=== PATIENT | male | born 1960 | race Caucasian/White ===

== ENCOUNTER 2017-03-09 12:49 | Emergency (ER) | payer OTHER ==
[~2017-03-09] VITALS: Ht 180.3 cm; Wt 99.8 kg
[~2017-03-09 12:49] MED LIST: ASPI81CH PO; B-1100 MG PO; CYCL10 PO; Cyanocobalamin5 GM PO; FOLI1 PO; HORIZANT600 MG PO; INSULANPEN SC; LISI5 PO; METF500 PO; NAPR500 PO; OXYC10ER PO; PANT20 PO; RANI150 PO
== END 2017-03-09 14:00 | disposition home or self-care (01) ==
LOC: ER 12:49
DX: M79.671 Pain in right foot (principal); E11.9 Type 2 diabetes mellitus without complications; I10 Essential (primary) hypertension; Z79.899 Other long term (current) drug therapy; Z79.84 Long term (current) use of oral hypoglycemic drugs; Z87.442 Personal history of urinary calculi; Z90.49 Acquired absence of other specified parts of digestive tract; Z87.891 Personal history of nicotine dependence; W01.0XXA Fall on same level from slipping, tripping and stumbling without subsequent striking against object, initial encounter
CPT/HCPCS: 73630; 99283

== ENCOUNTER 2017-04-14 17:28 | Emergency (ER) | payer OTHER ==
[~2017-04-14] VITALS: Ht 180.3 cm; Wt 99.8 kg
[2017-04-14] MEDS ORDERED: BASAGLAR K100 UNIT/1 SQ (17:57)
[2017-04-14] MEDS ORDERED: Cyclobenzaprine5 MG PO (19:18)
[2017-04-14] MEDS ORDERED: Prednisone20 MG PO (19:46)
== END 2017-04-14 19:57 | disposition home or self-care (01) ==
LOC: ER 17:28
DX: M25.552 Pain in left hip (principal); Z79.899 Other long term (current) drug therapy; Z79.84 Long term (current) use of oral hypoglycemic drugs; Z79.891 Long term (current) use of opiate analgesic; E11.9 Type 2 diabetes mellitus without complications; I10 Essential (primary) hypertension; F17.200 Nicotine dependence, unspecified, uncomplicated
CPT/HCPCS: 72170; 81000; 99283

== ENCOUNTER 2017-04-19 16:39 | Emergency (ER) | payer OTHER ==
[~2017-04-19] VITALS: Ht 180.3 cm; Wt 10.0 kg
[~2017-04-19 16:39] MED LIST changes: +BASAGLAR K100 UNIT/1 SQ; +Cyclobenzaprine5 MG PO; +Prednisone20 MG PO
== END 2017-04-19 19:18 | disposition home or self-care (01) ==
LOC: ER 16:39
DX: M54.42 Lumbago with sciatica, left side (principal); E11.9 Type 2 diabetes mellitus without complications; I10 Essential (primary) hypertension; Z79.899 Other long term (current) drug therapy; Z79.84 Long term (current) use of oral hypoglycemic drugs; Z79.52 Long term (current) use of systemic steroids; Z87.442 Personal history of urinary calculi
CPT/HCPCS: 96374; 96375; 96376; 99284; J1100; J1170; J2405

== ENCOUNTER 2017-04-22 18:27 | Inpatient (IN) | payer OTHER ==
[~2017-04-22] VITALS: Ht 180.3 cm; Wt 99.0 kg
[2017-04-22] MEDS ORDERED: METPRE4DP PO (19:56)
[2017-04-25 05:33] LABS: BASOPHILS ABSOLUTE AUTO 0.02 K/mm3 (0.00-0.23); BASOPHILS PERCENT AUTO 0 % (0-2); EOSINOPHILS ABSOLUTE AUTO 0.05 K/mm3 (0.00-0.68); EOSINOPHILS PERCENT AUTO 0 % (0-6); Hematocrit 42.1 % (37.0-53.0); Hemoglobin 14.8 g/dL (13.5-17.5); IMMATURE GRAN ABSOLUTE AUTO 0.05 K/mm3 (0.00-0.10); IMMATURE GRAN PERCENT AUTO 0 % (0-1); LYMPHOCYTES ABSOLUTE AUTO 2.73 K/mm3 (0.84-5.20); LYMPHOCYTES PERCENT AUTO 23 % (21-46); MONOCYTES ABSOLUTE AUTO 0.77 K/mm3 (0.16-1.47); MONOCYTES PERCENT AUTO 7 % (4-13); Mean Corpuscular HGB 30.6 pg (26.0-34.0); Mean Corpuscular HGB Conc 35.2 g/dL (31.5-36.5); Mean Corpuscular Volume 87 fL (80-100); Mean Platelet Volume 11.4 fL (9.1-12.4); NEUTROPHILS ABSOLUTE AUTO 8.08 K/mm3 (1.96-9.15); NEUTROPHILS PERCENT AUTO 69 % (41-73); Platelet Count 161 K/mm3 (150-400); RDW Coefficient Variation 12.4 % (11.7-14.2); RDW Standard Deviation 39.3 fL (35.1-46.3); Red Blood Cell Count 4.83 M/mm3 (4.30-5.90)
[2017-04-25 06:01] LABS: Alanine Aminotransfer (ALT/SGP 29 U/L (12-78); Albumin, Blood 3.5 g/dL (3.4-5.0); Albumin/Globulin Ratio 0.9 (0.8-1.8); Alk Phos 45 U/L (50-136); Anion Gap 8 mmol/L (6-16); Aspartate Aminotrans (AST/SGOT 7 U/L (12-37); Bilirubin, Total 0.6 mg/dL (0.1-1.0); Blood Urea Nitrogen 29 mg/dL (8-24); CO2, Blood 26 mmol/L (21-32); Calcium, Blood 9.1 mg/dL (8.5-10.1); Chloride, Blood 101 mmol/L (98-108); Creatinine, Blood 0.88 mg/dL (0.60-1.20); Globulin, Blood 3.9 g/dL (2.2-4.0); Glomerular Filtration Rate >60 (60-); Glucose, Blood 217 mg/dL (70-99); Sodium, Blood 135 mmol/L (136-145); Total Protein, Blood 7.4 g/dL (6.4-8.2)
[2017-04-28 05:38] LABS: Anion Gap 8 mmol/L (6-16); Blood Urea Nitrogen 34 mg/dL (8-24); Bun/Creatinine Ratio 41.1 (12.0-20.0); CO2, Blood 26 mmol/L (21-32); Calcium, Blood 8.8 mg/dL (8.5-10.1); Chloride, Blood 99 mmol/L (98-108); Creatinine, Blood 0.83 mg/dL (0.60-1.20); Glomerular Filtration Rate >60 (60-); Glucose, Blood 218 mg/dL (70-99); Potassium, Blood 4.1 mmol/L (3.5-5.5); Sodium, Blood 133 mmol/L (136-145)
[2017-04-30 05:28] LABS: BASOPHILS ABSOLUTE AUTO 0.02 K/mm3 (0.00-0.23); BASOPHILS PERCENT AUTO 0 % (0-2); EOSINOPHILS PERCENT AUTO 1 % (0-6); Hematocrit 44.1 % (37.0-53.0); Hemoglobin 15.9 g/dL (13.5-17.5); IMMATURE GRAN ABSOLUTE AUTO 0.07 K/mm3 (0.00-0.10); IMMATURE GRAN PERCENT AUTO 1 % (0-1); LYMPHOCYTES ABSOLUTE AUTO 3.76 K/mm3 (0.84-5.20); LYMPHOCYTES PERCENT AUTO 25 % (21-46); MONOCYTES ABSOLUTE AUTO 0.93 K/mm3 (0.16-1.47); MONOCYTES PERCENT AUTO 6 % (4-13); Mean Corpuscular HGB 30.7 pg (26.0-34.0); Mean Corpuscular HGB Conc 36.1 g/dL (31.5-36.5); Mean Corpuscular Volume 85 fL (80-100); Mean Platelet Volume 10.5 fL (9.1-12.4); NEUTROPHILS PERCENT AUTO 67 % (41-73); Platelet Count 187 K/mm3 (150-400); RDW Coefficient Variation 12.2 % (11.7-14.2); RDW Standard Deviation 37.7 fL (35.1-46.3); Red Blood Cell Count 5.18 M/mm3 (4.30-5.90); White Blood Cell Count 14.98 K/mm3 (4.00-11.30)
[2017-04-30 06:15] LABS: Anion Gap 10 mmol/L (6-16); Blood Urea Nitrogen 33 mg/dL (8-24); Bun/Creatinine Ratio 39.4 (12.0-20.0); CO2, Blood 26 mmol/L (21-32); Calcium, Blood 9.1 mg/dL (8.5-10.1); Chloride, Blood 99 mmol/L (98-108); Creatinine, Blood 0.84 mg/dL (0.60-1.20); Glomerular Filtration Rate >60 (60-); Glucose, Blood 116 mg/dL (70-99); Potassium, Blood 4.3 mmol/L (3.5-5.5); Sodium, Blood 135 mmol/L (136-145)
== END 2017-05-02 15:11 | disposition home or self-care (01) | DRG 519 ==
LOC: ER 18:27 → MEDS 18:28
PROVIDERS: Family Medicine; Hospitalist; Internal Medicine; Orthopaedic Surgery
PROC: 0SB20ZZ Excision of Lumbar Vertebral Disc, Open Approach (ICD-10-PCS; principal; 2017-04-30 13:30)
DX: M48.061 Spinal stenosis, lumbar region without neurogenic claudication (principal); K56.7 Ileus, unspecified; E87.1 Hypo-osmolality and hyponatremia; M51.16 Intervertebral disc disorders with radiculopathy, lumbar region; T50.905A Adverse effect of unspecified drugs, medicaments and biological substances, initial encounter; I10 Essential (primary) hypertension
CPT/HCPCS: 36415; 72131; 72148; 73552; 78300; 80048; 80053; 82947; 85025; 88304; 93005; 93010; 96372; 96374; 96375; 96376; 97110; 97116; 97162; 97164; 97530; 99285; A9561; G0378; G8978; G8979; J0171; J0690; J1100; J1170; J1650; J1815; J1885; J2250; J2405; J3010; J3370; J7030; J7120

== ENCOUNTER 2017-05-05 17:47 | Inpatient (IN) | payer OTHER ==
[~2017-05-05] VITALS: Ht 180.3 cm; Wt 98.9 kg
[~2017-05-05 17:47] MED LIST changes: +METPRE4DP PO
[2017-05-05] MEDS ORDERED: OXYC10TA19 PO (18:22)
[2017-05-05 18:49] LABS: BASOPHILS ABSOLUTE AUTO 0.05 K/mm3 (0.00-0.23); BASOPHILS PERCENT AUTO 0 % (0-2); EOSINOPHILS ABSOLUTE AUTO 0.36 K/mm3 (0.00-0.68); EOSINOPHILS PERCENT AUTO 2 % (0-6); Hematocrit 39.2 % (37.0-53.0); Hemoglobin 13.8 g/dL (13.5-17.5); IMMATURE GRAN ABSOLUTE AUTO 0.06 K/mm3 (0.00-0.10); IMMATURE GRAN PERCENT AUTO 0 % (0-1); LYMPHOCYTES ABSOLUTE AUTO 1.81 K/mm3 (0.84-5.20); LYMPHOCYTES PERCENT AUTO 10 % (21-46); MONOCYTES ABSOLUTE AUTO 1.59 K/mm3 (0.16-1.47); MONOCYTES PERCENT AUTO 9 % (4-13); Mean Corpuscular HGB 31.2 pg (26.0-34.0); Mean Corpuscular HGB Conc 35.2 g/dL (31.5-36.5); NEUTROPHILS ABSOLUTE AUTO 14.42 K/mm3 (1.96-9.15); NEUTROPHILS PERCENT AUTO 79 % (41-73); Platelet Count 225 K/mm3 (150-400); RDW Coefficient Variation 12.5 % (11.7-14.2); RDW Standard Deviation 40.4 fL (35.1-46.3); Red Blood Cell Count 4.43 M/mm3 (4.30-5.90); White Blood Cell Count 18.29 K/mm3 (4.00-11.30)
[2017-05-05 18:52] LABS: Mean Corpuscular Volume 89 fL (80-100)
[2017-05-05 19:06] LABS: Albumin, Blood 3.3 g/dL (3.4-5.0); Bilirubin, Total 1.7 mg/dL (0.1-1.0); Bun/Creatinine Ratio 13.7 (12.0-20.0); Calcium, Blood 8.9 mg/dL (8.5-10.1); Creatinine, Blood 3.79 mg/dL (0.60-1.20); Globulin, Blood 3.4 g/dL (2.2-4.0); Potassium, Blood 4.1 mmol/L (3.5-5.5); Total Protein, Blood 6.7 g/dL (6.4-8.2)
[2017-05-05 19:11] LABS: Ethanol (Alcohol), Blood, Med <3 mg/dL; Troponin I <0.015 ng/mL (0.000-0.040)
[2017-05-06 05:10] LABS: BASOPHILS ABSOLUTE AUTO 0.02 K/mm3 (0.00-0.23); BASOPHILS PERCENT AUTO 0 % (0-2); EOSINOPHILS ABSOLUTE AUTO 0.18 K/mm3 (0.00-0.68); EOSINOPHILS PERCENT AUTO 2 % (0-6); Hematocrit 28.9 % (37.0-53.0); IMMATURE GRAN ABSOLUTE AUTO 0.05 K/mm3 (0.00-0.10); IMMATURE GRAN PERCENT AUTO 1 % (0-1); LYMPHOCYTES ABSOLUTE AUTO 1.12 K/mm3 (0.84-5.20); LYMPHOCYTES PERCENT AUTO 11 % (21-46); MONOCYTES ABSOLUTE AUTO 0.94 K/mm3 (0.16-1.47); MONOCYTES PERCENT AUTO 10 % (4-13); Mean Corpuscular HGB 31.2 pg (26.0-34.0); Mean Corpuscular HGB Conc 34.6 g/dL (31.5-36.5); Mean Corpuscular Volume 90 fL (80-100); Mean Platelet Volume 10.6 fL (9.1-12.4); NEUTROPHILS ABSOLUTE AUTO 7.57 K/mm3 (1.96-9.15); NEUTROPHILS PERCENT AUTO 77 % (41-73); Platelet Count 116 K/mm3 (150-400); RDW Coefficient Variation 12.5 % (11.7-14.2); RDW Standard Deviation 41.1 fL (35.1-46.3); Red Blood Cell Count 3.21 M/mm3 (4.30-5.90); White Blood Cell Count 9.88 K/mm3 (4.00-11.30)
[2017-05-06 05:40] LABS: Calcium, Blood 7.2 mg/dL (8.5-10.1); Creatinine, Blood 2.74 mg/dL (0.60-1.20); Potassium, Blood 4.4 mmol/L (3.5-5.5)
[2017-05-06 06:14] LABS: Source, Urine Catheter
[2017-05-06 06:32] LABS: Bilirubin, Urine Neg (Neg); Blood, Urine 1+ (Neg); Glucose Qualitative, Urine Neg (Neg); Ketones, Urine Neg (Neg); Leukocyte Esterase, Urine 1+ (Neg); Nitrite, Urine Neg (Neg); Protein, Urine 1+ (Neg); Specific Gravity, Urine 1.015 (1.003-1.022); Urobilinogen, Urine 1+ (Normal)
[2017-05-06 06:59] LABS: Appearance, Urine Clear (Clear); Color, Urine Yellow (P-Yellow)
[2017-05-06 07:03] LABS: Amorphous Light (0-Heavy); Bacteria Rare /hpf; Red Blood Cells, Urine 0-2 /hpf (0-2); Squamous Epithelial Cells Not Seen /hpf (Few)
[2017-05-06 07:05] LABS: Hyaline Casts Rare /lpf (0-2); Mucus Light (0-Heavy)
[2017-05-06 15:58] LABS: U Amphetamine Screen Not Detected; U Barbituate Screen Not Detected; U Benzodiazapine Screen DETECTED; U Buprenorphine Screen Not Detected; U Cannabinoids Screen DETECTED; U Cocaine Screen Not Detected; U Methadone Screen Not Detected; U Methamphetamine Screen Not Detected; U Opiates Screen Not Detected; U Oxycodone Screen DETECTED; U Phencyclidine Screen Not Detected
[2017-05-06 15:59] LABS: U Propoxyphene Screen Not Detected
[2017-05-07 05:14] LABS: BASOPHILS ABSOLUTE AUTO 0.01 K/mm3 (0.00-0.23); BASOPHILS PERCENT AUTO 0 % (0-2); EOSINOPHILS ABSOLUTE AUTO 0.26 K/mm3 (0.00-0.68); EOSINOPHILS PERCENT AUTO 5 % (0-6); Hematocrit 25.7 % (37.0-53.0); Hemoglobin 8.9 g/dL (13.5-17.5); IMMATURE GRAN ABSOLUTE AUTO 0.03 K/mm3 (0.00-0.10); IMMATURE GRAN PERCENT AUTO 1 % (0-1); LYMPHOCYTES ABSOLUTE AUTO 0.98 K/mm3 (0.84-5.20); LYMPHOCYTES PERCENT AUTO 18 % (21-46); MONOCYTES ABSOLUTE AUTO 0.55 K/mm3 (0.16-1.47); MONOCYTES PERCENT AUTO 10 % (4-13); Mean Corpuscular HGB Conc 34.6 g/dL (31.5-36.5); Mean Corpuscular Volume 90 fL (80-100); Mean Platelet Volume 10.7 fL (9.1-12.4); NEUTROPHILS PERCENT AUTO 66 % (41-73); Platelet Count 84 K/mm3 (150-400); RDW Coefficient Variation 12.3 % (11.7-14.2); RDW Standard Deviation 39.7 fL (35.1-46.3); Red Blood Cell Count 2.87 M/mm3 (4.30-5.90); White Blood Cell Count 5.33 K/mm3 (4.00-11.30)
[2017-05-07 05:45] LABS: Anion Gap 7 mmol/L (6-16); Blood Urea Nitrogen 22 mg/dL (8-24); Bun/Creatinine Ratio 20.4 (12.0-20.0); CO2, Blood 24 mmol/L (21-32); Calcium, Blood 7.4 mg/dL (8.5-10.1); Chloride, Blood 109 mmol/L (98-108); Creatinine, Blood 1.08 mg/dL (0.60-1.20); Glomerular Filtration Rate >60 (60-); Glucose, Blood 209 mg/dL (70-99); Potassium, Blood 4.2 mmol/L (3.5-5.5); Sodium, Blood 140 mmol/L (136-145)
[2017-05-08 05:13] LABS: Albumin, Blood 2.3 g/dL (3.4-5.0); Anion Gap 8 mmol/L (6-16); Blood Urea Nitrogen 9 mg/dL (8-24); Bun/Creatinine Ratio 10.5 (12.0-20.0); CO2, Blood 26 mmol/L (21-32); Calcium, Blood 7.9 mg/dL (8.5-10.1); Chloride, Blood 107 mmol/L (98-108); Creatinine, Blood 0.86 mg/dL (0.60-1.20); Glomerular Filtration Rate >60 (60-); Glucose, Blood 110 mg/dL (70-99); Phosphorus, Blood 2.3 mg/dL (2.5-4.9); Potassium, Blood 3.8 mmol/L (3.5-5.5); Sodium, Blood 141 mmol/L (136-145)
[2017-05-09 05:22] LABS: BASOPHILS PERCENT AUTO 0 % (0-2); EOSINOPHILS ABSOLUTE AUTO 0.29 K/mm3 (0.00-0.68); EOSINOPHILS PERCENT AUTO 7 % (0-6); Hematocrit 27.2 % (37.0-53.0); Hemoglobin 9.7 g/dL (13.5-17.5); IMMATURE GRAN ABSOLUTE AUTO 0.02 K/mm3 (0.00-0.10); IMMATURE GRAN PERCENT AUTO 1 % (0-1); LYMPHOCYTES ABSOLUTE AUTO 1.09 K/mm3 (0.84-5.20); LYMPHOCYTES PERCENT AUTO 27 % (21-46); MONOCYTES ABSOLUTE AUTO 0.37 K/mm3 (0.16-1.47); MONOCYTES PERCENT AUTO 9 % (4-13); Mean Corpuscular HGB Conc 35.7 g/dL (31.5-36.5); Mean Platelet Volume 10.3 fL (9.1-12.4); NEUTROPHILS ABSOLUTE AUTO 2.35 K/mm3 (1.96-9.15); NEUTROPHILS PERCENT AUTO 57 % (41-73); Platelet Count 118 K/mm3 (150-400); RDW Coefficient Variation 12.3 % (11.7-14.2); RDW Standard Deviation 38.4 fL (35.1-46.3); Red Blood Cell Count 3.13 M/mm3 (4.30-5.90); White Blood Cell Count 4.12 K/mm3 (4.00-11.30)
[2017-05-09 05:23] LABS: Mean Corpuscular Volume 87 fL (80-100)
[2017-05-09 05:41] LABS: Albumin, Blood 2.2 g/dL (3.4-5.0); Anion Gap 9 mmol/L (6-16); Blood Urea Nitrogen 9 mg/dL (8-24); Bun/Creatinine Ratio 10.3 (12.0-20.0); CO2, Blood 25 mmol/L (21-32); Chloride, Blood 107 mmol/L (98-108); Creatinine, Blood 0.87 mg/dL (0.60-1.20); Glomerular Filtration Rate >60 (60-); Glucose, Blood 173 mg/dL (70-99); Phosphorus, Blood 3.1 mg/dL (2.5-4.9); Potassium, Blood 3.6 mmol/L (3.5-5.5); Sodium, Blood 141 mmol/L (136-145)
[2017-05-09 10:15] LABS: Vancomycin, Trough 16.4 ug/mL (5.0-10.0)
[2017-05-10 05:03] LABS: BASOPHILS ABSOLUTE AUTO 0.01 K/mm3 (0.00-0.23); BASOPHILS PERCENT AUTO 0 % (0-2); EOSINOPHILS ABSOLUTE AUTO 0.36 K/mm3 (0.00-0.68); EOSINOPHILS PERCENT AUTO 8 % (0-6); Hematocrit 28.5 % (37.0-53.0); Hemoglobin 10.1 g/dL (13.5-17.5); IMMATURE GRAN ABSOLUTE AUTO 0.02 K/mm3 (0.00-0.10); IMMATURE GRAN PERCENT AUTO 1 % (0-1); LYMPHOCYTES ABSOLUTE AUTO 1.26 K/mm3 (0.84-5.20); LYMPHOCYTES PERCENT AUTO 29 % (21-46); MONOCYTES PERCENT AUTO 9 % (4-13); Mean Corpuscular HGB 30.7 pg (26.0-34.0); Mean Corpuscular HGB Conc 35.4 g/dL (31.5-36.5); Mean Corpuscular Volume 87 fL (80-100); Mean Platelet Volume 9.4 fL (9.1-12.4); NEUTROPHILS ABSOLUTE AUTO 2.26 K/mm3 (1.96-9.15); NEUTROPHILS PERCENT AUTO 52 % (41-73); Platelet Count 127 K/mm3 (150-400); RDW Coefficient Variation 12.1 % (11.7-14.2); RDW Standard Deviation 38.2 fL (35.1-46.3); Red Blood Cell Count 3.29 M/mm3 (4.30-5.90); White Blood Cell Count 4.31 K/mm3 (4.00-11.30)
[2017-05-10 05:20] LABS: Albumin, Blood 2.4 g/dL (3.4-5.0); Anion Gap 8 mmol/L (6-16); Blood Urea Nitrogen 7 mg/dL (8-24); Bun/Creatinine Ratio 8.2 (12.0-20.0); CO2, Blood 25 mmol/L (21-32); Calcium, Blood 8.1 mg/dL (8.5-10.1); Chloride, Blood 107 mmol/L (98-108); Creatinine, Blood 0.85 mg/dL (0.60-1.20); Glomerular Filtration Rate >60 (60-); Glucose, Blood 195 mg/dL (70-99); Phosphorus, Blood 3.9 mg/dL (2.5-4.9); Potassium, Blood 3.5 mmol/L (3.5-5.5); Sodium, Blood 140 mmol/L (136-145)
[2017-05-11 05:02] LABS: BASOPHILS ABSOLUTE AUTO 0.03 K/mm3 (0.00-0.23); BASOPHILS PERCENT AUTO 0 % (0-2); EOSINOPHILS ABSOLUTE AUTO 0.36 K/mm3 (0.00-0.68); EOSINOPHILS PERCENT AUTO 5 % (0-6); Hematocrit 32.6 % (37.0-53.0); Hemoglobin 11.4 g/dL (13.5-17.5); IMMATURE GRAN ABSOLUTE AUTO 0.05 K/mm3 (0.00-0.10); IMMATURE GRAN PERCENT AUTO 1 % (0-1); LYMPHOCYTES ABSOLUTE AUTO 1.32 K/mm3 (0.84-5.20); LYMPHOCYTES PERCENT AUTO 18 % (21-46); MONOCYTES ABSOLUTE AUTO 0.62 K/mm3 (0.16-1.47); MONOCYTES PERCENT AUTO 8 % (4-13); Mean Corpuscular HGB 30.7 pg (26.0-34.0); Mean Corpuscular Volume 88 fL (80-100); Mean Platelet Volume 9.7 fL (9.1-12.4); NEUTROPHILS ABSOLUTE AUTO 5.06 K/mm3 (1.96-9.15); NEUTROPHILS PERCENT AUTO 68 % (41-73); Platelet Count 134 K/mm3 (150-400); RDW Coefficient Variation 12.5 % (11.7-14.2); RDW Standard Deviation 39.5 fL (35.1-46.3); Red Blood Cell Count 3.71 M/mm3 (4.30-5.90); White Blood Cell Count 7.44 K/mm3 (4.00-11.30)
[2017-05-11 05:29] LABS: Albumin, Blood 2.6 g/dL (3.4-5.0); Anion Gap 11 mmol/L (6-16); Blood Urea Nitrogen 11 mg/dL (8-24); Bun/Creatinine Ratio 6.8 (12.0-20.0); CO2, Blood 25 mmol/L (21-32); Calcium, Blood 8.6 mg/dL (8.5-10.1); Chloride, Blood 106 mmol/L (98-108); Creatinine, Blood 1.61 mg/dL (0.60-1.20); Glomerular Filtration Rate 47 (60-); Glucose, Blood 165 mg/dL (70-99); Phosphorus, Blood 4.7 mg/dL (2.5-4.9); Potassium, Blood 3.6 mmol/L (3.5-5.5); Sodium, Blood 142 mmol/L (136-145)
[2017-05-11 11:14] LABS: Vancomycin, Trough 24.6 ug/mL (5.0-10.0)
[2017-05-11 12:19] LABS: Bilirubin, Urine Neg (Neg); Blood, Urine Neg (Neg); Glucose Qualitative, Urine Neg (Neg); Ketones, Urine Neg (Neg); Leukocyte Esterase, Urine Neg (Neg); Nitrite, Urine Neg (Neg); Protein, Urine Neg (Neg); Source, Urine Clean Catch; Specific Gravity, Urine 1.005 (1.003-1.022); Urobilinogen, Urine NORM (Normal)
[2017-05-11 12:32] LABS: Appearance, Urine Clear (Clear); Color, Urine Yellow (P-Yellow)
[2017-05-12 09:30] LABS: BASOPHILS ABSOLUTE AUTO 0.02 K/mm3 (0.00-0.23); BASOPHILS PERCENT AUTO 0 % (0-2); EOSINOPHILS ABSOLUTE AUTO 0.42 K/mm3 (0.00-0.68); EOSINOPHILS PERCENT AUTO 6 % (0-6); Hematocrit 34.6 % (37.0-53.0); Hemoglobin 12.1 g/dL (13.5-17.5); IMMATURE GRAN ABSOLUTE AUTO 0.04 K/mm3 (0.00-0.10); IMMATURE GRAN PERCENT AUTO 1 % (0-1); LYMPHOCYTES ABSOLUTE AUTO 1.28 K/mm3 (0.84-5.20); LYMPHOCYTES PERCENT AUTO 19 % (21-46); MONOCYTES PERCENT AUTO 8 % (4-13); Mean Corpuscular HGB 30.5 pg (26.0-34.0); Mean Corpuscular Volume 87 fL (80-100); Mean Platelet Volume 9.6 fL (9.1-12.4); NEUTROPHILS ABSOLUTE AUTO 4.41 K/mm3 (1.96-9.15); NEUTROPHILS PERCENT AUTO 66 % (41-73); Platelet Count 139 K/mm3 (150-400); RDW Coefficient Variation 12.9 % (11.7-14.2); RDW Standard Deviation 39.6 fL (35.1-46.3); Red Blood Cell Count 3.97 M/mm3 (4.30-5.90); White Blood Cell Count 6.67 K/mm3 (4.00-11.30)
[2017-05-12 09:46] LABS: Albumin, Blood 3.1 g/dL (3.4-5.0); Anion Gap 10 mmol/L (6-16); Blood Urea Nitrogen 12 mg/dL (8-24); Bun/Creatinine Ratio 7.3 (12.0-20.0); CO2, Blood 26 mmol/L (21-32); Calcium, Blood 9.1 mg/dL (8.5-10.1); Chloride, Blood 106 mmol/L (98-108); Creatinine, Blood 1.64 mg/dL (0.60-1.20); Glomerular Filtration Rate 46 (60-); Glucose, Blood 176 mg/dL (70-99); Phosphorus, Blood 3.7 mg/dL (2.5-4.9); Sodium, Blood 142 mmol/L (136-145)
[2017-05-12 09:51] LABS: Vancomycin, Trough 13.6 ug/mL (5.0-10.0)
[2017-05-13 05:11] LABS: BASOPHILS ABSOLUTE AUTO 0.01 K/mm3 (0.00-0.23); BASOPHILS PERCENT AUTO 0 % (0-2); EOSINOPHILS PERCENT AUTO 8 % (0-6); Hematocrit 27.9 % (37.0-53.0); Hemoglobin 9.8 g/dL (13.5-17.5); IMMATURE GRAN ABSOLUTE AUTO 0.04 K/mm3 (0.00-0.10); IMMATURE GRAN PERCENT AUTO 1 % (0-1); LYMPHOCYTES ABSOLUTE AUTO 1.28 K/mm3 (0.84-5.20); LYMPHOCYTES PERCENT AUTO 25 % (21-46); MONOCYTES PERCENT AUTO 10 % (4-13); Mean Corpuscular HGB 30.8 pg (26.0-34.0); Mean Corpuscular HGB Conc 35.1 g/dL (31.5-36.5); Mean Corpuscular Volume 88 fL (80-100); NEUTROPHILS ABSOLUTE AUTO 2.83 K/mm3 (1.96-9.15); NEUTROPHILS PERCENT AUTO 56 % (41-73); Platelet Count 120 K/mm3 (150-400); RDW Coefficient Variation 12.9 % (11.7-14.2); RDW Standard Deviation 39.5 fL (35.1-46.3); Red Blood Cell Count 3.18 M/mm3 (4.30-5.90); White Blood Cell Count 5.06 K/mm3 (4.00-11.30)
[2017-05-13 05:52] LABS: Alanine Aminotransfer (ALT/SGP 20 U/L (12-78); Albumin, Blood 2.5 g/dL (3.4-5.0); Albumin/Globulin Ratio 0.7 (0.8-1.8); Alk Phos 38 U/L (50-136); Anion Gap 7 mmol/L (6-16); Aspartate Aminotrans (AST/SGOT 13 U/L (12-37); Bilirubin, Total 0.4 mg/dL (0.1-1.0); Blood Urea Nitrogen 16 mg/dL (8-24); CO2, Blood 26 mmol/L (21-32); Calcium, Blood 8.6 mg/dL (8.5-10.1); Chloride, Blood 108 mmol/L (98-108); Creatinine, Blood 1.45 mg/dL (0.60-1.20); Globulin, Blood 3.4 g/dL (2.2-4.0); Glomerular Filtration Rate 53 (60-); Glucose, Blood 180 mg/dL (70-99); Magnesium, Blood 1.4 mg/dL (1.6-2.4); Potassium, Blood 3.9 mmol/L (3.5-5.5); Sodium, Blood 141 mmol/L (136-145); Total Protein, Blood 5.9 g/dL (6.4-8.2)
[2017-05-13] MEDS ORDERED: DULO30 PO (13:59)
== END 2017-05-13 14:52 | disposition home or self-care (01) | DRG 871 ==
LOC: ER 17:47 → MEDS 19:41 → ER 20:19 → MEDS 20:19 → ENPENDDIS 05-13 10:00 → MEDS 05-13 14:52
PROVIDERS: Emergency Medicine; Hospitalist; Internal Medicine; Internal Medicine Endocrinology, Diabetes & Metabolism
DX: A41.9 Sepsis, unspecified organism (principal); G92 Toxic encephalopathy; G93.41 Metabolic encephalopathy; N17.9 Acute kidney failure, unspecified; I95.9 Hypotension, unspecified; E11.22 Type 2 diabetes mellitus with diabetic chronic kidney disease; R65.20 Severe sepsis without septic shock; N28.9 Disorder of kidney and ureter, unspecified; E11.65 Type 2 diabetes mellitus with hyperglycemia; I12.9 Hypertensive chronic kidney disease with stage 1 through stage 4 chronic kidney disease, or unspecified chronic kidney disease; N18.9 Chronic kidney disease, unspecified; M51.16 Intervertebral disc disorders with radiculopathy, lumbar region
CPT/HCPCS: 36415; 71046; 76770; 80048; 80053; 80069; 80202; 81001; 81003; 82947; 83605; 83735; 84100; 84300; 84484; 85025; 85651; 86140; 87040; 87086; 93005; 93010; 96361; 97110; 97116; 97161; 97165; 97530; 97535; 99285; G0480; G8978; G8979; G8980; G8987; G8988; G8989; J0881; J1644; J1650; J2543; J3370; J3475; J7030; J7050

== ENCOUNTER → 2017-08-30 | Outpatient (CLI) | payer OTHER ==
[~2017-08-30] MED LIST changes: +DULO30 PO; +OXYC10TA19 PO
[2017-08-30 13:54] LABS: Calcium, Urine 14.4 mg/dL (2.0-17.5); Microalbumin, Urine Quant. 42.9 mg/L (0.000-20.000); Uric Acid, Urine 49.7 mg/dL (7.5-49.5)
[2017-08-30 14:13] LABS: Phosphorus, Urine 80.8 mg/dL (20.0-60.0)
== END ==
LOC: LAB 09:05 → LAB SHORT 09:05
PROVIDERS: Internal Medicine Nephrology
DX: N18.3 Chronic kidney disease, stage 3 (moderate) (principal); D63.1 Anemia in chronic kidney disease; E86.9 Volume depletion, unspecified; R73.09 Other abnormal glucose; N25.81 Secondary hyperparathyroidism of renal origin; E55.9 Vitamin D deficiency, unspecified; E78.00 Pure hypercholesterolemia, unspecified; R94.5 Abnormal results of liver function studies; R94.6 Abnormal results of thyroid function studies
CPT/HCPCS: 81050; 82043; 82340; 82570; 84105; 84133; 84156; 84300; 84560

== ENCOUNTER → 2018-03-18 | Outpatient (CLI) | payer OTHER ==
[2018-03-18 19:01] LABS: U Amphetamine Screen Not Detected; U Barbituate Screen Not Detected; U Benzodiazapine Screen Not Detected; U Buprenorphine Screen Not Detected; U Cannabinoids Screen Not Detected; U Cocaine Screen Not Detected; U Methadone Screen Not Detected; U Methamphetamine Screen Not Detected; U Opiates Screen DETECTED; U Oxycodone Screen DETECTED; U Phencyclidine Screen Not Detected; U Propoxyphene Screen Not Detected
== END ==
LOC: LAB SHORT 18:43 → LAB 18:43
PROVIDERS: Nurse Practitioner Family
DX: M54.5 Low back pain (principal)
CPT/HCPCS: G0480

== ENCOUNTER → 2018-04-22 | Outpatient (CLI) | payer OTHER ==
[2018-04-22 14:14] LABS: Creatinine Urine 58.2 mg/dL (27.00-270.00); Protein, Urine Quantitative 26.6 mg/dL (0.0-11.9); Uric Acid, Urine 27.7 mg/dL (7.5-49.5)
== END | disposition home or self-care (01) ==
LOC: LAB SHORT 11:44 → LAB 11:44 → LAB FUT 04-20 11:00
PROVIDERS: Internal Medicine Nephrology
DX: N18.3 Chronic kidney disease, stage 3 (moderate) (principal); D63.1 Anemia in chronic kidney disease; N25.81 Secondary hyperparathyroidism of renal origin; E55.9 Vitamin D deficiency, unspecified; E78.00 Pure hypercholesterolemia, unspecified; R76.9 Abnormal immunological finding in serum, unspecified; R94.5 Abnormal results of liver function studies; R94.6 Abnormal results of thyroid function studies
CPT/HCPCS: 81050; 82043; 82131; 82507; 82570; 83945; 84156; 84300; 84560

== ENCOUNTER 2018-08-04 06:08 | Day surgery (SDC) | payer OTHER ==
[~2018-08-04] VITALS: Ht 177.8 cm; Wt 112.0 kg
[~2018-08-04 06:08] MED LIST changes: +BASAGLAR K100 UNIT/1 SC; +GABA600 PO; +LO-DOSE ASPIRIN81 MG PO; +Metformin HCl1000 MG PO; +NAPR500EC PO; +Prinivil10 MG PO
--- NOTE | 2018-08-04 07:08 | NUR ---
08/04/18 0708 Mary Atwood CALL LIGHT WITHIN REACH. FAMILY AT BEDSIDE
[2018-08-04] MEDS ORDERED: Magnesium200 MG PO (07:12)
[2018-08-04] MEDS ORDERED: POTCHL10ER PO (07:12)
--- NOTE | 2018-08-04 08:53 | NUR ---
08/04/18 0853 Raiza Gutierrez PATIENT STATED THAT HE HAD TAKEN BOTH HIS ORAL GLYCEMIC AGENTS AND INSULIN THIS MORNING PRIOR TO SURGERY. PER ANESTHESIA, GLUCOSE TESTING EVERY HOUR DURING SURGERY NEEDED. AT 0835 GLUCOSE AT 97. ANESTHESIA AWARE. D-50 PULLED
--- NOTE | 2018-08-04 11:09 | NUR ---
08/04/18 1109 Denise Ramos INSTRUCTED TO NOT USE RIGHT ARM FOR ANYTHING. DOES NOT COMPLY, USING RIGHT ARM TO PUSH OFF AND RE ARRANGE HIMSELF DESPITE SHOULDER SLING AND IMMOBILIZER.
== END 2018-08-04 12:03 | disposition home or self-care (01) ==
LOC: ORSCSDS 06:08
PROVIDERS: Orthopaedic Surgery
PROC: 0RNJ4ZZ Release Right Shoulder Joint, Percutaneous Endoscopic Approach (ICD-10-PCS; principal; 2018-08-04 07:30)
PROC: 0LQ14ZZ Repair Right Shoulder Tendon, Percutaneous Endoscopic Approach (ICD-10-PCS; principal; 2018-08-04 07:30)
DX: M75.121 Complete rotator cuff tear or rupture of right shoulder, not specified as traumatic (principal); S46.211A Strain of muscle, fascia and tendon of other parts of biceps, right arm, initial encounter; E11.22 Type 2 diabetes mellitus with diabetic chronic kidney disease; I12.9 Hypertensive chronic kidney disease with stage 1 through stage 4 chronic kidney disease, or unspecified chronic kidney disease; N18.9 Chronic kidney disease, unspecified; F17.210 Nicotine dependence, cigarettes, uncomplicated; Z79.899 Other long term (current) drug therapy; Z79.82 Long term (current) use of aspirin; B19.20 Unspecified viral hepatitis C without hepatic coma; E66.01 Morbid (severe) obesity due to excess calories; Z68.34 Body mass index [BMI] 34.0-34.9, adult
CPT/HCPCS: 82947; C1713; J0171; J0690; J1100; J2250; J2370; J2405; J2704; J2710; J3010; J7030; J7799

== ENCOUNTER 2018-10-12 10:05 | Emergency (ER) | payer OTHER ==
[~2018-10-12] VITALS: Ht 177.8 cm; Wt 108.9 kg
[~2018-10-12 10:05] MED LIST changes: +Magnesium200 MG PO; +POTCHL10ER PO
[2018-10-12 11:09] LABS: BASOPHILS ABSOLUTE AUTO 0.04 K/mm3 (0.00-0.23); BASOPHILS PERCENT AUTO 1 % (0-2); EOSINOPHILS ABSOLUTE AUTO 0.35 K/mm3 (0.00-0.68); EOSINOPHILS PERCENT AUTO 5 % (0-6); Hematocrit 45.5 % (37.0-53.0); Hemoglobin 14.9 g/dL (13.5-17.5); IMMATURE GRAN ABSOLUTE AUTO 0.02 K/mm3 (0.00-0.10); IMMATURE GRAN PERCENT AUTO 0 % (0-1); LYMPHOCYTES ABSOLUTE AUTO 3.13 K/mm3 (0.84-5.20); LYMPHOCYTES PERCENT AUTO 43 % (21-46); MONOCYTES ABSOLUTE AUTO 0.59 K/mm3 (0.16-1.47); MONOCYTES PERCENT AUTO 8 % (4-13); Mean Corpuscular HGB 33.7 pg (26.0-34.0); Mean Corpuscular HGB Conc 32.7 g/dL (31.5-36.5); Mean Corpuscular Volume 103 fL (80-100); NEUTROPHILS PERCENT AUTO 43 % (41-73); Platelet Count 179 K/mm3 (150-400); RDW Coefficient Variation 13.8 % (11.7-14.2); RDW Standard Deviation 52.7 fL (35.1-46.3); Red Blood Cell Count 4.42 M/mm3 (4.30-5.90); White Blood Cell Count 7.23 K/mm3 (4.00-11.30)
[2018-10-12 11:25] LABS: Bun/Creatinine Ratio 6.3 (12.0-20.0); Calcium, Blood 8.5 mg/dL (8.5-10.1); Creatinine, Blood 1.74 mg/dL (0.60-1.20); Potassium, Blood 4.1 mmol/L (3.5-5.5)
[2018-10-12] MEDS ORDERED: Robaxin-750750 MG PO (13:03)
[2018-10-12] MEDS ORDERED: IBUP800 PO (13:03)
[2018-10-12] MEDS ORDERED: Percocet 10-321 EACH PO (13:07)
== END 2018-10-12 13:13 | disposition home or self-care (01) ==
LOC: ER 10:05
PROVIDERS: Emergency Medicine
DX: M54.16 Radiculopathy, lumbar region (principal); I95.9 Hypotension, unspecified; E11.65 Type 2 diabetes mellitus with hyperglycemia; Z79.899 Other long term (current) drug therapy; Z79.4 Long term (current) use of insulin; Z79.82 Long term (current) use of aspirin; I10 Essential (primary) hypertension; F17.200 Nicotine dependence, unspecified, uncomplicated
CPT/HCPCS: 36415; 72100; 80048; 82947; 85025; 96361; 96374; 99283-25; J1885; J7030

== ENCOUNTER 2019-01-15 11:47 | Emergency (ER) | payer OTHER ==
[~2019-01-15] VITALS: Ht 177.8 cm; Wt 113.4 kg
[~2019-01-15 11:47] MED LIST changes: +IBUP800 PO; +Inderal 20 mg T20 MG; +LOSA50; +Percocet 10-321 EACH PO; +Robaxin-750750 MG PO
[2019-01-15] MEDS ORDERED: Prinivil10 MG PO (13:26)
[2019-01-15] MEDS ORDERED: BASAGLAR K100 UNIT/2 SQ (13:26)
[2019-01-15] MEDS ORDERED: DULO30 PO (13:27)
[2019-01-15] MEDS ORDERED: OXYC10TA19 PO (14:13)
[2019-01-15] MEDS ORDERED: Robaxin-750750 MG PO (14:13)
== END 2019-01-15 14:29 | disposition home or self-care (01) ==
LOC: ER 11:47
DX: M54.5 Low back pain (principal); G89.29 Other chronic pain; I10 Essential (primary) hypertension; E11.9 Type 2 diabetes mellitus without complications; F17.210 Nicotine dependence, cigarettes, uncomplicated; Z79.899 Other long term (current) drug therapy; Z79.4 Long term (current) use of insulin; Z79.82 Long term (current) use of aspirin; Z87.442 Personal history of urinary calculi
CPT/HCPCS: 72070; 72100; 96372; 99283-25; J1885

== ENCOUNTER 2019-01-19 06:49 | Day surgery (SDC) | payer OTHER ==
[~2019-01-19] VITALS: Ht 177.8 cm; Wt 114.6 kg
[~2019-01-19 06:49] MED LIST changes: +BASAGLAR K100 UNIT/2 SQ
[2019-01-19] MEDS ORDERED: Percocet 10-321 EACH PO (07:53)
--- NOTE | 2019-01-19 09:23 | NUR ---
01/19/19 0923 Jo Roland FRAME, GEL UNDER KNEES, ABDOMEN AND ANKLES, FOAM PILLOW, KNEES FLEXED, TOES PRESSURE FREE. POSITIONING CHECKED AND VERIFIED BY SURGEON AND ANESTHESIA.
--- NOTE | 2019-01-19 12:19 | NUR ---
01/19/19 1219 Mary Atwood PT RESTING ON RECLINER, FAMILY AT CHAIRSIDE. VS WNL. BP IS NOW WNL 163/95. PT C/O PAIN 8/10 ON RIGHT ELBOW AND LOW BACK. DRESSING CLEAN, DRY AND INTACT ON LOWER BACK. PT TOLERATING WATER. PT DENIES ANY N/V. WILL CONTINUE TO MONITOR.
== END 2019-01-19 13:39 | disposition home or self-care (01) ==
LOC: ORSCSDS 06:49
PROVIDERS: Orthopaedic Surgery
PROC: 0SB20ZZ Excision of Lumbar Vertebral Disc, Open Approach (ICD-10-PCS; principal; 2019-01-19 08:00)
DX: M47.27 Other spondylosis with radiculopathy, lumbosacral region (principal); M51.27 Other intervertebral disc displacement, lumbosacral region; I10 Essential (primary) hypertension; B19.20 Unspecified viral hepatitis C without hepatic coma; Z79.899 Other long term (current) drug therapy; Z79.82 Long term (current) use of aspirin; E66.01 Morbid (severe) obesity due to excess calories; Z68.36 Body mass index [BMI] 36.0-36.9, adult
CPT/HCPCS: 82947; 88304; J0171; J0690; J1100; J1885; J2250; J2405; J2704; J3010; J3370; J7120

== ENCOUNTER 2019-02-06 09:25 | Emergency (ER) | payer OTHER ==
[~2019-02-06] VITALS: Ht 177.8 cm; Wt 113.4 kg
== END 2019-02-06 11:56 | disposition home or self-care (01) ==
LOC: ER 09:25
DX: M54.5 Low back pain (principal); I10 Essential (primary) hypertension; E11.9 Type 2 diabetes mellitus without complications; F17.210 Nicotine dependence, cigarettes, uncomplicated; Z98.890 Other specified postprocedural states; Z88.8 Allergy status to other drugs, medicaments and biological substances; Z79.899 Other long term (current) drug therapy; Z79.82 Long term (current) use of aspirin; Z79.4 Long term (current) use of insulin
CPT/HCPCS: 96374; 99283-25; J1885

== ENCOUNTER 2020-03-08 07:47 | Day surgery (SDC) | payer OTHER ==
[~2020-03-08] VITALS: Ht 180.3 cm; Wt 118.2 kg
[~2020-03-08 07:47] MED LIST changes: +Aspirin EC81 MG PO; +B-1100 M1 PO; +BASAGLAR K100 UNIT/7 SC; +Inderal 20 mg T20 MG PO; +LOSA50 PO; +METF500C PO; +OXYC5 PO; +Ranitidine HCl300 MG PO; +Robaxin750 MG PO; +VITAMIN D32000 UNI3 PO
--- NOTE | 2020-03-08 10:59 | NUR ---
REPORT TO BENNETT BACON P6T IS A/O TEGANG CDI MEDICATING PRESCRIBED RATES PAIN 08/24 AT THIS TIME HE IS PLEASANT
--- NOTE | 2020-03-08 11:51 | NUR ---
REPORT TO JORDI Paris
--- NOTE | 2020-03-08 11:52 | NUR ---
RECIEVED PATIENT FROM EDUARDO BACON VSS PLACED ON ROOM AIR. ENCOURAGED TO COUGH AND DEEP BREATHE. EAR PROBE APPLIED
--- NOTE | 2020-03-08 12:07 | NUR ---
Discharge instructions reviewed with patient. Patient verbalizes understanding. Copy given to patient to take home. Discharge instructions reviewed with patient. Patient verbalizes understanding. Copy given to patient to take home. Patient States Post-Procedure ride home has been arranged. Discharged via wheelchair to private car for ride home.
== END 2020-03-08 22:45 | disposition home or self-care (01) ==
LOC: ORSCMMR 07:47 → ORD 09:00 → ORSCMMR 09:00
DX: K80.10 Calculus of gallbladder with chronic cholecystitis without obstruction (principal); K74.60 Unspecified cirrhosis of liver
CPT/HCPCS: 74300; 82947; 88304; A9270; C1729; J0690; J1100; J2250; J2370; J2405; J2704; J2710; J3010; J7030; J7120

== ENCOUNTER 2021-02-18 06:54 | Day surgery (SDC) | payer OTHER ==
[~2021-02-18] VITALS: Ht 180.3 cm; Wt 120.9 kg
[2021-02-18 07:53] LABS: Influenza A, PCR NEGATIVE (NEGATIVE); Influenza B, PCR NEGATIVE (NEGATIVE); Resp Syncytial Virus, PCR NEGATIVE (NEGATIVE); SARS-Cov-2 (COVID-19) PCR, MMC NEGATIVE (NEGATIVE)
== END 2021-02-18 10:15 | disposition home or self-care (01) ==
LOC: ORSCSDS 06:54
PROVIDERS: Orthopaedic Surgery
PROC: 01N50ZZ Release Median Nerve, Open Approach (ICD-10-PCS; principal; 2021-02-18 08:00)
PROC: 01S40ZZ Reposition Ulnar Nerve, Open Approach (ICD-10-PCS; principal; 2021-02-18 08:00)
DX: G56.01 Carpal tunnel syndrome, right upper limb (principal); G56.21 Lesion of ulnar nerve, right upper limb; I10 Essential (primary) hypertension; J44.9 Chronic obstructive pulmonary disease, unspecified; E11.9 Type 2 diabetes mellitus without complications; Z79.84 Long term (current) use of oral hypoglycemic drugs; Z79.899 Other long term (current) drug therapy; Z79.82 Long term (current) use of aspirin; E66.01 Morbid (severe) obesity due to excess calories; Z68.37 Body mass index [BMI] 37.0-37.9, adult; K74.60 Unspecified cirrhosis of liver
CPT/HCPCS: 0241U; 82947; J0690; J2250; J2370; J2704; J2795; J3010; J7120

== ENCOUNTER 2021-03-14 16:50 | Emergency (ER) | payer OTHER ==
[~2021-03-14] VITALS: Ht 175.3 cm; Wt 122.5 kg
[~2021-03-14 16:50] MED LIST changes: -ALBU8HFA2 INH; -Amaryl1 MG PO; -CATAPRES0.1 MG PO; -DOXY100 PO; -FAMO40 PO; -LINE600 PO; -NIFE30ER PO; -OMEP20ER PO; -PIOG30 PO
[2021-03-14 18:34] LABS: BASOPHILS ABSOLUTE AUTO 0.01 K/mm3 (0.00-0.23); BASOPHILS PERCENT AUTO 0 % (0-2); EOSINOPHILS ABSOLUTE AUTO 0.18 K/mm3 (0.00-0.68); EOSINOPHILS PERCENT AUTO 5 % (0-6); Hematocrit 35.8 % (37.0-53.0); Hemoglobin 12.2 g/dL (13.5-17.5); IMMATURE GRAN ABSOLUTE AUTO 0.01 K/mm3 (0.00-0.10); IMMATURE GRAN PERCENT AUTO 0 % (0-1); LYMPHOCYTES ABSOLUTE AUTO 1.02 K/mm3 (0.84-5.20); LYMPHOCYTES PERCENT AUTO 30 % (21-46); MONOCYTES ABSOLUTE AUTO 0.35 K/mm3 (0.16-1.47); MONOCYTES PERCENT AUTO 10 % (4-13); Mean Corpuscular HGB 33.6 pg (26.0-34.0); Mean Corpuscular HGB Conc 34.1 g/dL (31.5-36.5); Mean Corpuscular Volume 99 fL (80-100); Mean Platelet Volume 11.7 fL (9.1-12.4); NEUTROPHILS ABSOLUTE AUTO 1.88 K/mm3 (1.96-9.15); NEUTROPHILS PERCENT AUTO 55 % (41-73); Platelet Count 114 K/mm3 (150-400); RDW Coefficient Variation 12.7 % (11.7-14.2); RDW Standard Deviation 45.8 fL (35.1-46.3); Red Blood Cell Count 3.63 M/mm3 (4.30-5.90); White Blood Cell Count 3.45 K/mm3 (4.00-11.30)
[2021-03-14 18:46] LABS: Alanine Aminotransfer (ALT/SGP 38 U/L (12-78); Albumin, Blood 3.5 g/dL (3.4-5.0); Albumin/Globulin Ratio 0.9 (0.8-1.8); Alk Phos 60 U/L (50-136); Anion Gap 7 mmol/L (6-16); Aspartate Aminotrans (AST/SGOT 31 U/L (12-37); Bilirubin, Total 0.6 mg/dL (0.1-1.0); Blood Urea Nitrogen 15 mg/dL (8-24); Bun/Creatinine Ratio 13.5 (12.0-20.0); CO2, Blood 26 mmol/L (21-32); Calcium, Blood 9.2 mg/dL (8.5-10.1); Chloride, Blood 102 mmol/L (98-108); Creatinine, Blood 1.11 mg/dL (0.60-1.20); Globulin, Blood 4.1 g/dL (2.2-4.0); Glomerular Filtration Rate >60 (60-); Glucose, Blood 146 mg/dL (70-99); Potassium, Blood 5.1 mmol/L (3.5-5.5); Sodium, Blood 135 mmol/L (136-145); Total Protein, Blood 7.6 g/dL (6.4-8.2)
[2021-03-15] MEDS ORDERED: CATAPRES0.1 MG PO (12:21)
[2021-03-15] MEDS ORDERED: FAMO40 PO (12:22)
[2021-03-15] MEDS ORDERED: Amaryl1 MG PO (12:23)
[2021-03-15] MEDS ORDERED: OMEP20ER PO (12:24)
[2021-03-15] MEDS ORDERED: ALBU8HFA2 INH (12:26)
[2021-03-15] MEDS ORDERED: PIOG30 PO (13:37)
== END 2021-03-14 20:30 | disposition left against medical advice (07) ==
LOC: CT 16:50 → ER 16:50
PROVIDERS: Emergency Medicine
DX: Z53.21 Procedure and treatment not carried out due to patient leaving prior to being seen by health care provider (principal)
CPT/HCPCS: 73201; 80053; 85025; Q9967

== ENCOUNTER → 2021-03-14 | Outpatient (CLI) | payer OTHER ==
[~2021-03-14] MED LIST changes: +ALBU8HFA2 INH; +Amaryl1 MG PO; +CATAPRES0.1 MG PO; +DOXY100 PO; +FAMO40 PO; +LINE600 PO; +NIFE30ER PO; +OMEP20ER PO; +PIOG30 PO
[2021-03-14 16:59] LABS: Anion Gap 8 mmol/L (6-16); Blood Urea Nitrogen 17 mg/dL (8-24); Bun/Creatinine Ratio 15.9 (12.0-20.0); CO2, Blood 25 mmol/L (21-32); Chloride, Blood 102 mmol/L (98-108); Creatinine, Blood 1.07 mg/dL (0.60-1.20); Glomerular Filtration Rate >60 (60-); Glucose, Blood 295 mg/dL (70-99); Potassium, Blood 5.2 mmol/L (3.5-5.5); Sodium, Blood 135 mmol/L (136-145)
== END ==
LOC: LAB SHORT 16:05
PROVIDERS: Emergency Medicine
DX: N18.1 Chronic kidney disease, stage 1 (principal)
CPT/HCPCS: 80048

== ENCOUNTER 2021-03-15 09:17 | Inpatient (IN) | payer OTHER ==
[~2021-03-15] VITALS: Ht 177.8 cm; Wt 120.5 kg
[2021-03-15 11:27] LABS: BASOPHILS PERCENT AUTO 0 % (0-2); EOSINOPHILS ABSOLUTE AUTO 0.12 K/mm3 (0.00-0.68); EOSINOPHILS PERCENT AUTO 6 % (0-6); Hematocrit 34.4 % (37.0-53.0); Hemoglobin 11.7 g/dL (13.5-17.5); IMMATURE GRAN ABSOLUTE AUTO 0.01 K/mm3 (0.00-0.10); IMMATURE GRAN PERCENT AUTO 1 % (0-1); LYMPHOCYTES ABSOLUTE AUTO 0.78 K/mm3 (0.84-5.20); LYMPHOCYTES PERCENT AUTO 36 % (21-46); MONOCYTES ABSOLUTE AUTO 0.19 K/mm3 (0.16-1.47); MONOCYTES PERCENT AUTO 9 % (4-13); Mean Corpuscular HGB 33.6 pg (26.0-34.0); Mean Corpuscular Volume 99 fL (80-100); Mean Platelet Volume 11.4 fL (9.1-12.4); NEUTROPHILS ABSOLUTE AUTO 1.09 K/mm3 (1.96-9.15); NEUTROPHILS PERCENT AUTO 50 % (41-73); Platelet Count 98 K/mm3 (150-400); RDW Coefficient Variation 12.9 % (11.7-14.2); Red Blood Cell Count 3.48 M/mm3 (4.30-5.90); White Blood Cell Count 2.19 K/mm3 (4.00-11.30)
[2021-03-15 11:51] LABS: Alanine Aminotransfer (ALT/SGP 38 U/L (12-78); Albumin, Blood 3.4 g/dL (3.4-5.0); Albumin/Globulin Ratio 0.8 (0.8-1.8); Alk Phos 58 U/L (50-136); Anion Gap 5 mmol/L (6-16); Aspartate Aminotrans (AST/SGOT 30 U/L (12-37); Bilirubin, Total 0.6 mg/dL (0.1-1.0); Blood Urea Nitrogen 17 mg/dL (8-24); Bun/Creatinine Ratio 15.9 (12.0-20.0); CO2, Blood 31 mmol/L (21-32); Calcium, Blood 9.9 mg/dL (8.5-10.1); Chloride, Blood 104 mmol/L (98-108); Creatinine, Blood 1.07 mg/dL (0.60-1.20); Glomerular Filtration Rate >60 (60-); Glucose, Blood 175 mg/dL (70-99); Potassium, Blood 5.2 mmol/L (3.5-5.5); Sodium, Blood 140 mmol/L (136-145); Total Protein, Blood 7.4 g/dL (6.4-8.2)
[2021-03-15] MEDS ORDERED: CATAPRES0.1 MG PO (12:21)
[2021-03-15] MEDS ORDERED: FAMO40 PO (12:22)
[2021-03-15] MEDS ORDERED: Amaryl1 MG PO (12:23)
[2021-03-15] MEDS ORDERED: OMEP20ER PO (12:24)
[2021-03-15] MEDS ORDERED: ALBU8HFA2 INH (12:26)
[2021-03-15 12:51] LABS: Influenza A, PCR NEGATIVE (NEGATIVE); Influenza B, PCR NEGATIVE (NEGATIVE); Resp Syncytial Virus, PCR NEGATIVE (NEGATIVE)
[2021-03-15 12:54] LABS: SARS-Cov-2 (COVID-19) PCR, MMC POSITIVE (NEGATIVE)
[2021-03-15] MEDS ORDERED: PIOG30 PO (13:37)
--- NOTE | 2021-03-15 14:01 | NUR ---
ARRIVAL TO UNIT PT AA0X4, AMBULATES WELL IN ROOM WITH WALKER, HE STATES THAT IF HE STANDS UP TO FAST HIS KNEES WILL BUCKLE AT TIMES. DENIES PAIN BESIDES CHRONIC BACK PAIN WHICH IS TOLERABLE AT THIS CURRENT TIME. BANDAGE FROM ER IS CDI. PT AWARE OF NPO STATUS. PRIOR TO ARRIVAL ON UNIT, LAB NOTIFIED OF COVID POSITIVE TEST. PT DENIES SOB OR ANY FEELINGS OF ILLNESS, LUNGS CLEAR. IN TO SEE PATIENT. PLAN IS FOR I&D TODAY. PT CURRENTLY SLEEPING IN BED. CALL LIGHT IN REACH.
--- NOTE | 2021-03-15 16:10 | NUR ---
SHIFT SUMMARY NO ACUTE CHANGES SINCE ARRIVAL TO UNIT. PT REMAINS NPO PLAN IS TO GO TO SURGERY THIS EVENING. PT DENIES NEEDS AND REMAINS IND IN ROOM. CALLS APPROPRIATLY.
--- NOTE | 2021-03-15 16:42 | NUR ---
PT OUT OF ROOM FOR PROCEDURE AT THIS TIME.
--- NOTE | 2021-03-15 18:15 | NUR ---
ARRIVAL PT ARRIVED TO UNIT AT 1800 FROM PACU, 3L NASAL CANULA SATS 100% TITRATING DOWN PATIENT TOLERATES. CURRENTLY HE DENIED EATING DINNER, PROVIDED ICE WATER TO PATIENT, HE REPORTS BURNING PAIN TO R ELBOW, HE REPORTS QUITE UNCOMFORTABLE. HE DENIES NAUSEA. WILL MEDICATE PER EMAR. DRESSING CDI. CURRENTLY SLEEPING IN BED AT THIS TIME.
--- NOTE | 2021-03-16 00:46 | NUR ---
0025 NOTED PT. UNABLE TO VOID SINCE BACK IN ROOM AT 1800 FROM I & D PROCEDURE, ASKED PT. IF HE FEELS HE CAN VOID, URINAL OFFERED, PT. STATED " NO, I JUST DRINK A LITTLE BIT ", I THEN OFFERED TO DO BLADDER SCAN TO CHECK AMOUNT OF URINE IN THE BLADDER, PT. STRONGLY REFUSED TWICE. PT. STATED HE WILL USE THE URINAL WHEN HE FEELS HE NEEDED TO URINATE, PT. ALSO DENIES ANY KIDNEY/URINARY ISSUES, WILL CONTINUE TO MONITOR. AMARIS ANGEL.
[2021-03-16 04:46] LABS: BASOPHILS PERCENT AUTO 0 % (0-2); EOSINOPHILS PERCENT AUTO 0 % (0-6); Hematocrit 34.2 % (37.0-53.0); Hemoglobin 11.3 g/dL (13.5-17.5); IMMATURE GRAN ABSOLUTE AUTO 0.01 K/mm3 (0.00-0.10); IMMATURE GRAN PERCENT AUTO 0 % (0-1); LYMPHOCYTES ABSOLUTE AUTO 0.41 K/mm3 (0.84-5.20); LYMPHOCYTES PERCENT AUTO 13 % (21-46); MONOCYTES ABSOLUTE AUTO 0.05 K/mm3 (0.16-1.47); MONOCYTES PERCENT AUTO 2 % (4-13); Mean Corpuscular HGB 33.3 pg (26.0-34.0); Mean Corpuscular Volume 101 fL (80-100); Mean Platelet Volume 11.4 fL (9.1-12.4); NEUTROPHILS ABSOLUTE AUTO 2.74 K/mm3 (1.96-9.15); NEUTROPHILS PERCENT AUTO 85 % (41-73); Platelet Count 103 K/mm3 (150-400); RDW Coefficient Variation 12.7 % (11.7-14.2); RDW Standard Deviation 46.7 fL (35.1-46.3); Red Blood Cell Count 3.39 M/mm3 (4.30-5.90); White Blood Cell Count 3.21 K/mm3 (4.00-11.30)
--- NOTE | 2021-03-16 04:48 | NUR ---
SHIFT SUMMARY: PATIENT AOX4, WALKED TO THE BATHROOM LAST NIGHT ON SBA USING A CANE WHICH IS HIS BASELINE AT HOME. RIGHT ELBOW S/P I & D WITH ABD DRESSING ON & ACEWRAP C/D/I. VOIDED 200 ML, REFUSED BLADDER SCAN HE SAID HE DID NOT DRINK MUCH, DENIES ANY URINARY ISSUES. COMPLAINTS OF R ELBOW PAIN MEDICATED, SEE EMAR. IV ANTIBIOTICS GIVEN & TOLERATED WELL. VASCULAR ACCESS TO LEFT AC & R HAND INFUSING WELL. NO OTHER COMPLAINTS, WILL CONTINUE TO MONITOR.
[2021-03-16 05:08] LABS: Albumin/Globulin Ratio 0.8 (0.8-1.8); Bilirubin, Total 0.5 mg/dL (0.1-1.0); Bun/Creatinine Ratio 16.8 (12.0-20.0); Calcium, Blood 9.1 mg/dL (8.5-10.1); Creatinine, Blood 1.25 mg/dL (0.60-1.20); Magnesium, Blood 1.2 mg/dL (1.6-2.4); Potassium, Blood 5.8 mmol/L (3.5-5.5)
--- NOTE | 2021-03-16 17:58 | NUR ---
PATIENT CURRENTLY SITTING UP IN BED WITH NO SIGNS OR SYMPTOMS ACUTE DISTRESS NTOED. CALL LIGHT AND WATER IN EASY REACH. ABLE TO MAKE NEEDS AND WANTS KNOWN. AAOX4. DRESSING TO RIGHT ARM CHANGED TODAY DUE TO IT COMING OFF. DR PAIZ ALSO CHANGED DRESSING TODAY WITH HIS VISIT. AYLIN DRAIN INTACT. NO DRAINAGE NOTED ON BANDAGE AT THIS TIME. MEDICATED FOR PAIN PER ORDERS. WILL MONITOR.
[2021-03-16 20:38] LABS: Vancomycin, Trough 22.2 ug/mL (5.0-10.0)
--- NOTE | 2021-03-17 03:50 | NUR ---
SHIFT SUMMARY: PT. AOX4, REPOSITIONS SELF, CALLS FOR HELP USING CALL LIGHT. COMPLAINTS OF R ELBOW PAIN MEDICATED, SEE EMAR. VOIDED IN URINAL & IN THE BATHROOM. AMBULATES USING A CANE ON SBA. SLEEPING WELL. IV ANTIBIOTIC TOLERATED WELL. NO NEW UNUSUALITIES NOTED.WILL CONTINUE TO MONITOR.
[2021-03-17 12:00] LABS: Albumin, Blood 2.9 g/dL (3.4-5.0); Anion Gap 4 mmol/L (6-16); Blood Urea Nitrogen 22 mg/dL (8-24); Bun/Creatinine Ratio 19.3 (12.0-20.0); CO2, Blood 29 mmol/L (21-32); Chloride, Blood 107 mmol/L (98-108); Creatinine, Blood 1.14 mg/dL (0.60-1.20); Glomerular Filtration Rate >60 (60-); Glucose, Blood 144 mg/dL (70-99); Phosphorus, Blood 4.1 mg/dL (2.5-4.9); Potassium, Blood 4.3 mmol/L (3.5-5.5); Sodium, Blood 140 mmol/L (136-145)
[2021-03-17] MEDS ORDERED: DOXY100 PO (13:09)
[2021-03-17] MEDS ORDERED: NIFE30ER PO (13:10)
[2021-03-17] MEDS ORDERED: LINE600 PO (13:10)
--- NOTE | 2021-03-17 13:18 | NUR ---
DISCHARGE INSTUCTIONS GIVEN TO PATIENT AT THIS TIME. PATIENT VERBALIZED UNDERSTANDING. PRESCRIPTION GIVEN TO PATIENT FOR PAIN MED. OTHER MEDS FAXED TO [facility] PER PATIENT REQUEST. NO SIGNS OR SYMPTOMS ACUTE DISTRESS NOTED. IV REMOVED.
--- NOTE | 2021-03-17 14:08 | NUR ---
Per Dr. Bojorquez discharge appropriate on: 03/17/21. Patient does not oppose discharge. Patient discharged home to residence. Transportation to residence provided by family. DME: none needed. Patient reminded to contact PCP if any questions regarding medication management/social service needs or go to urgent care if condition worsens. [facility] will contact patient to schedule hospital PCP follow up FRIT COATER Dea Johnston. Patient has strong family support. No barriers to discharge at this time.
--- NOTE | 2021-03-17 16:46 | NUR ---
Per Dr. Bojorquez discharge appropriate on: 03/17/21. Patient does not oppose discharge. Patient discharged home to residence. Transportation to residence provided by family. DME: none needed. Patient reminded to contact PCP if any questions regarding medication management/social service needs or go to urgent care if condition worsens. Hospital follow up scheduled for 03/19/21 at 10:30 am with ELIF Valencia. Patient also need sot follow up with Dr. Yeny Cisneros (Orthopedics) for post op within one week; [facility] will contact patient to coordinate appt. Patient has strong family support. No barriers to discharge at this time.
== END 2021-03-17 13:40 | disposition home or self-care (01) | DRG 856 ==
LOC: ER 09:17 → SURS 09:18
PROVIDERS: Orthopaedic Surgery; Pharmacist; Student in an Organized Health Care Education/Training Program; ADMIT Family Medicine
PROC: 8E0ZXY6 Isolation (ICD-10-PCS; 2021-03-15)
PROC: 0JBG0ZZ Excision of Right Lower Arm Subcutaneous Tissue and Fascia, Open Approach (ICD-10-PCS; principal; 2021-03-15 15:15)
DX: T81.41XA Infection following a procedure, superficial incisional surgical site, initial encounter (principal); U07.1 COVID-19; L03.113 Cellulitis of right upper limb; I10 Essential (primary) hypertension; K21.9 Gastro-esophageal reflux disease without esophagitis; E11.65 Type 2 diabetes mellitus with hyperglycemia; E11.42 Type 2 diabetes mellitus with diabetic polyneuropathy; G89.29 Other chronic pain; Z90.49 Acquired absence of other specified parts of digestive tract; Z87.891 Personal history of nicotine dependence; Z98.890 Other specified postprocedural states; Z88.8 Allergy status to other drugs, medicaments and biological substances; Z79.84 Long term (current) use of oral hypoglycemic drugs; Z79.899 Other long term (current) drug therapy; Z28.21 Immunization not carried out because of patient refusal; Y83.8 Other surgical procedures as the cause of abnormal reaction of the patient, or of later complication, without mention of misadventure at the time of the procedure
CPT/HCPCS: 0241U; 36415; 80053; 80069; 80202; 82947; 83605; 83735; 85025; 87070; 87071; 87075; 87205; 99284; A9270; G0378; J0360; J0690; J1100; J1815; J2250; J2405; J2704; J3010; J3370; J7050

== ENCOUNTER 2021-03-22 08:58 | Inpatient (IN) | payer OTHER ==
[~2021-03-22] VITALS: Ht 177.8 cm; Wt 123.8 kg
[~2021-03-22 08:58] MED LIST changes: +ALBU8HFA2 INH; +Amaryl1 MG PO; +CATAPRES0.1 MG PO; +DOXY100 PO; +FAMO40 PO; +LINE600 PO; +NIFE30ER PO; +OMEP20ER PO; +PIOG30 PO
[2021-03-22 10:32] LABS: BASOPHILS ABSOLUTE AUTO 0.02 K/mm3 (0.00-0.23); BASOPHILS PERCENT AUTO 0 % (0-2); EOSINOPHILS ABSOLUTE AUTO 0.16 K/mm3 (0.00-0.68); EOSINOPHILS PERCENT AUTO 3 % (0-6); Hematocrit 34.9 % (37.0-53.0); Hemoglobin 11.5 g/dL (13.5-17.5); IMMATURE GRAN ABSOLUTE AUTO 0.01 K/mm3 (0.00-0.10); IMMATURE GRAN PERCENT AUTO 0 % (0-1); LYMPHOCYTES ABSOLUTE AUTO 1.16 K/mm3 (0.84-5.20); LYMPHOCYTES PERCENT AUTO 24 % (21-46); MONOCYTES ABSOLUTE AUTO 0.53 K/mm3 (0.16-1.47); MONOCYTES PERCENT AUTO 11 % (4-13); Mean Corpuscular HGB 33.4 pg (26.0-34.0); Mean Corpuscular Volume 102 fL (80-100); Mean Platelet Volume 11.2 fL (9.1-12.4); NEUTROPHILS ABSOLUTE AUTO 2.91 K/mm3 (1.96-9.15); NEUTROPHILS PERCENT AUTO 61 % (41-73); Platelet Count 118 K/mm3 (150-400); RDW Coefficient Variation 13.7 % (11.7-14.2); RDW Standard Deviation 48.7 fL (35.1-46.3); Red Blood Cell Count 3.44 M/mm3 (4.30-5.90); White Blood Cell Count 4.79 K/mm3 (4.00-11.30)
[2021-03-22 10:53] LABS: Albumin, Blood 3.1 g/dL (3.4-5.0); Albumin/Globulin Ratio 0.8 (0.8-1.8); Bilirubin, Total 0.6 mg/dL (0.1-1.0); Bun/Creatinine Ratio 9.4 (12.0-20.0); Calcium, Blood 8.9 mg/dL (8.5-10.1); Creatinine, Blood 1.91 mg/dL (0.60-1.20); Globulin, Blood 3.7 g/dL (2.2-4.0); Potassium, Blood 5.2 mmol/L (3.5-5.5); Total Protein, Blood 6.8 g/dL (6.4-8.2)
[2021-03-22 15:45] LABS: Influenza A, PCR NEGATIVE (NEGATIVE); Influenza B, PCR NEGATIVE (NEGATIVE); Resp Syncytial Virus, PCR NEGATIVE (NEGATIVE)
[2021-03-22 15:49] LABS: SARS-Cov-2 (COVID-19) PCR, MMC POSITIVE (NEGATIVE)
--- NOTE | 2021-03-22 18:49 | NUR ---
RECEIVED PT FROM ED. PT FED IN ED SO SURGERY POSTPONED UNTIL TIMORROW. NPO AT MIDNIGHT.
[2021-03-23 04:33] LABS: BASOPHILS ABSOLUTE AUTO 0.01 K/mm3 (0.00-0.23); BASOPHILS PERCENT AUTO 0 % (0-2); EOSINOPHILS ABSOLUTE AUTO 0.17 K/mm3 (0.00-0.68); EOSINOPHILS PERCENT AUTO 5 % (0-6); Hematocrit 31.2 % (37.0-53.0); Hemoglobin 10.3 g/dL (13.5-17.5); IMMATURE GRAN ABSOLUTE AUTO 0.01 K/mm3 (0.00-0.10); IMMATURE GRAN PERCENT AUTO 0 % (0-1); LYMPHOCYTES ABSOLUTE AUTO 1.13 K/mm3 (0.84-5.20); LYMPHOCYTES PERCENT AUTO 32 % (21-46); MONOCYTES ABSOLUTE AUTO 0.34 K/mm3 (0.16-1.47); MONOCYTES PERCENT AUTO 10 % (4-13); Mean Corpuscular Volume 103 fL (80-100); Mean Platelet Volume 11.2 fL (9.1-12.4); NEUTROPHILS ABSOLUTE AUTO 1.86 K/mm3 (1.96-9.15); NEUTROPHILS PERCENT AUTO 53 % (41-73); Platelet Count 82 K/mm3 (150-400); RDW Coefficient Variation 13.9 % (11.7-14.2); RDW Standard Deviation 50.5 fL (35.1-46.3); Red Blood Cell Count 3.03 M/mm3 (4.30-5.90); White Blood Cell Count 3.52 K/mm3 (4.00-11.30)
[2021-03-23 05:02] LABS: Albumin, Blood 2.7 g/dL (3.4-5.0); Albumin/Globulin Ratio 0.8 (0.8-1.8); Bilirubin, Total 0.6 mg/dL (0.1-1.0); C-REACTIVE PROTEIN, EXT RANGE 0.801 mg/dL (0.000-0.300); Calcium, Blood 8.2 mg/dL (8.5-10.1); Creatinine, Blood 1.71 mg/dL (0.60-1.20); Globulin, Blood 3.4 g/dL (2.2-4.0); Phosphorus, Blood 4.5 mg/dL (2.5-4.9); Potassium, Blood 4.5 mmol/L (3.5-5.5); Total Protein, Blood 6.1 g/dL (6.4-8.2)
--- NOTE | 2021-03-23 05:26 | NUR ---
SHIFT SUMMARY: PT AAOX4. VS WNL WITH NO SIGNS OF DISTRESS NOTED. RIGHT ELBOW WRAPPED WITH DRESSING NO DRAINAGE PRESENT. IV PATENT IN LEFT ARM. ATMOSPHERIC SCIENCES PROFESSOR IN PLACE. COMPRESSION DEVICE ON BOTH CALF. VOIDING WELL. COMPLAINED OF PAIN 07/25. MEDICATED PER EMAR. TOLERATED ALL MEDICATION WELL. MONITOR AND MAINTAIN ALL SAFTEY PRECAUTIONS.
--- NOTE | 2021-03-23 08:15 | NUR ---
HYPOGLYCEMIA PT'S AM BLOOD GLUCOSE WAS 53. PHYSICIAN NOTIFIED AND D50 SYRINGE GIVEN. RECHECKED BLOOD GLUCOSE IN 15 MINUTES AND BLOOD GLUCOSE IS NOW 126. WILL CHECK BLOOD GLUCOSE AGAIN IN AN HOUR.
--- NOTE | 2021-03-23 14:40 | NUR ---
03/23/21 1440 Julissa Nunes PATIENT ON SCHEDULED ANTIBIOTICS. RECEIVED ZOSYN 4.5GM AT 1304 TODAY./ RECEIVED VANCO 1250MG AT 0317 TODAY.
--- NOTE | 2021-03-23 15:17 | NUR ---
PT BACK FROM THE OR AT THIS TIME. BEDSIDE REPORT GIVEN.
--- NOTE | 2021-03-23 18:39 | NUR ---
SHIFT SUMMARY PT A/O X4; PLEASANT AND COOPERATIVE WITH CARE. IRRIGATION AND DEBRIDEMENT DONE TODAY. PT C/O PAIN IN HIS R ELBOW, TREATED PER EMR. PT RECEIVING IV ANTIBIOTICS. HE ALSO HAD AN INSTANCE OF HYPOGLYCEMIA THIS AM WHILE NPO. TREATED PER EMR AND HYPOGLYCEMIA HAS RESOLVED. VSS. WILL REPORT TO RUSS BACON.
--- NOTE | 2021-03-24 04:40 | NUR ---
SHIFT SUMMARY: PT IN BED AAOX4. VS WNL WITH NO DISTRESS NOTED. IV SITE C/D/I PATENT. DRESSING ON RIGHT ELBOW C/D/I. TOLERATED ALL MEDICATIONS WITH NO ADVERSE REACTIONS PRESENT. PT COMPLAINED OF PAIN IN RIGHT ELBOW 07/25. MEDICATED PER EMAR. WILL CONTINUE TO MONITOR.
[2021-03-24 05:21] LABS: Bun/Creatinine Ratio 16.2 (12.0-20.0); Creatinine, Blood 1.48 mg/dL (0.60-1.20); Potassium, Blood 5.3 mmol/L (3.5-5.5)
[2021-03-24 14:53] LABS: Vancomycin, Trough 24.2 ug/mL (5.0-10.0)
--- NOTE | 2021-03-24 16:57 | NUR ---
SHIFT SUMMARY POD 1 I&D R ARM PT PAIN MANAGED WELL PER EMAR. HE REPORTS SOME NUMBNESS IN RIGHT HAND PRESENT SINCE INFECTION BEGAN. MOVES EXTREMETY WELL. DRESSING CHANGED BY PROVIDER TODAY. CURRENTLY CDI. PT TOLERATING PO WELL. PLAN IS FOR DAILY DRESSING CHANGES AND POSSIBLE DISCHARGE TOMORROW.
--- NOTE | 2021-03-25 04:33 | NUR ---
SHIFT SUMMARY: PT AAOX4. VS WNL WITH NO SIGNS OF DISTRESS NOTED. JOURNEYMAN MEAT CUTTER IN PLACE. DRESSING ON RIGHT ELBOW C/D/I. COMPLAINS OF PAIN IN ELBOW MEDICATED PER EMAR. TOLERATED ALL MEDICATIONS WELL. MONITORING AND MAINTAINING ALL PRECATIONS. IV SITE C/D/I PATENT.
--- NOTE | 2021-03-25 10:29 | NUR ---
PT CALLED THIS RN INTO THE ROOM. HE REPORTED FEELING VERY SHORT OF BREATH AND "ALMOST PASSED OUT WHILE WIPING". HE WAS SITTING ON THE EDGE OF THE BED WITH BOTH HANDS ON HIS TABLE BREATHING QUICKLY. SATS REMAINED 95% OR HIGHER. PLACED ON 2L TO HELP WITH WORK OF BREATHING. NOTIFED PATIENT TO CALL IF HE HAS WORSENING SHORTNESS OF BREATH OR DIZZINESS. NOTIFIED DR. FITZGERALD. ORDERS RECIEVED FOR CHEST X-RAY. PT REMAINS WITH SATS GREATER THAN 94% BUT REPORTS DIFFICULTY CATCHING BREATH STILL. HE HAS REMOVED OXYGEN "IT IS NOT HELPING". CURRENTLY RESTING. CALL LIGHT IN REACH.
--- NOTE | 2021-03-25 10:56 | NUR ---
Received referral from [facility] Product Introduction Manager (Bonita Salinas) on 03/25/2021. Patient is to discharge with orders for home health and elected [facility]. Met with patient to further discuss the above. Patient is agreeable to the above. Discussed homebound status definition with patient. Patient verbalized understanding. Discussed what home health is vs what it is not (in home caregivers/housekeeping). Patient verbalized understanding. Discussed the next steps in the process of an initial assessment to determine frequency of visits. Again patient verbalized understanding. Offered a chance for patient to ask questions regarding the above of which there were none. At this time patient has no discharge orders entered. Will continue to monitor and follow for discharge. Liliana Clark Referral Liaison
--- NOTE | 2021-03-25 15:14 | NUR ---
DRESSING CHANGED PER ORDERS. PT TOLERATED WELL. MINIMAL DRAINAGE ON REMOVED DRESSING, TWO STICHES ON DRESSING. PT REMAINS SITTING UP WITH ARMS ON RAISED BEDSIDE TABLE. HE REPORTS IT REMAINS DIFFICULT TO BREATH WHEN ARMS DOWN OR LAYING DOWN. MD AWARE. PT USING URINAL AT BEDSIDE SINCE LASIX ADMINISTERED. URINE IS CLEAR/VERY LIGHT YELLOW.
--- NOTE | 2021-03-25 15:15 | NUR ---
03/25/21 1515 Sona Guevara CASE CANCELLED, PATIENT GIVEN FOOD TRAY. RESCHEDULED FOR AM.
--- NOTE | 2021-03-25 18:39 | NUR ---
SHIFT SUMMARY POD 2 I&D R ELBOW. DRESSING CHANGED TODAY PER ORDERS. TOLERATED WELL. PT PAIN WELL CONTROLLED DURING SHIFT WITH PO. SINCE PREVIOUS NOTE PT REPORTS SOB HAS MINIMALLY IMPROVED. HE CONTINUES TO REPORT INCREASES WITH EXERTION. VOIDING WELL IN URINAL, 2X BM TODAY. TOLERATING PO. PLAN IS TO DIURESIS AND MONITOR IMPROVEMENTS WITH BREATHING.
--- NOTE | 2021-03-26 05:27 | NUR ---
PT IS ALERT AND ORIENTED X4. PAIM MEDS WERE GIVEN TWICE. DRINKING A LOT OF FLUIDS. VOIDING LARGE AMOUNT; CLEAR LIGHT YELLOW. FELT WELL THRU THE NIGHT UNTIL AROUND 0400. PT HAVING SHORTNESS OF BREATH BUT SATS WNL AND RH 18 TO 20. ELBOW DRESSING GOT DONE AT 0500.
[2021-03-26 06:33] LABS: Vancomycin, Trough 24.8 ug/mL (5.0-10.0)
--- NOTE | 2021-03-26 11:25 | NUR ---
vtach TELE REPORTED PT HAD 5 BEAT RUN OF VTACH. PT DENIES CP. STATED STILL FEELS LIKE CAN'T TAKE DEEP BREATH. VSS. NOTIFIED DR FITZGERALD.
--- NOTE | 2021-03-26 17:51 | NUR ---
SUMMARY NO ACUTE CHANGES T/O SHIFT. PT SLEPT T/O AFTERNOON. STATED STILL HAS SOME SOB. LUNGS SOUND CLEAR T/O. ADMINISTERED EVENING DOSE OF LASIX. GOOD URINARY OUTPUT T/O SHIFT. COVERED CBGS PER ORDERS. CALL LIGHT IN REACH.
--- NOTE | 2021-03-26 18:48 | NUR ---
REPORT GIVEN TO ONCOMING SHIFT.
--- NOTE | 2021-03-27 04:38 | NUR ---
PT DID WELL THRU THE NIGHT. PAIN PILL WAS GIVEN ONCE. HAD A SNACK. LIMITED TO DRINK WATER NO MORE THAN A 1000 THRU THE NIGHT. VOIDING. DRESSING GOT CHANGED AT THE BEGINNING OF THE SHIFT; DRAINED VERY SMALL AMOUNT OF SEROUS. INCISION WITHOUT SIGNS OF INFECTION.
[2021-03-27 09:48] LABS: BASOPHILS ABSOLUTE AUTO 0.02 K/mm3 (0.00-0.23); BASOPHILS PERCENT AUTO 0 % (0-2); EOSINOPHILS ABSOLUTE AUTO 0.24 K/mm3 (0.00-0.68); EOSINOPHILS PERCENT AUTO 4 % (0-6); Hematocrit 34.2 % (37.0-53.0); Hemoglobin 11.5 g/dL (13.5-17.5); IMMATURE GRAN ABSOLUTE AUTO 0.02 K/mm3 (0.00-0.10); IMMATURE GRAN PERCENT AUTO 0 % (0-1); LYMPHOCYTES PERCENT AUTO 21 % (21-46); MONOCYTES ABSOLUTE AUTO 0.65 K/mm3 (0.16-1.47); MONOCYTES PERCENT AUTO 11 % (4-13); Mean Corpuscular HGB 33.5 pg (26.0-34.0); Mean Corpuscular HGB Conc 33.6 g/dL (31.5-36.5); Mean Corpuscular Volume 100 fL (80-100); Mean Platelet Volume 11.1 fL (9.1-12.4); NEUTROPHILS ABSOLUTE AUTO 3.57 K/mm3 (1.96-9.15); NEUTROPHILS PERCENT AUTO 63 % (41-73); Platelet Count 118 K/mm3 (150-400); RDW Coefficient Variation 13.9 % (11.7-14.2); RDW Standard Deviation 50.1 fL (35.1-46.3); Red Blood Cell Count 3.43 M/mm3 (4.30-5.90)
[2021-03-27 09:59] LABS: Bun/Creatinine Ratio 24.1 (12.0-20.0); Calcium, Blood 9.4 mg/dL (8.5-10.1); Creatinine, Blood 1.33 mg/dL (0.60-1.20); Potassium, Blood 3.8 mmol/L (3.5-5.5)
--- NOTE | 2021-03-27 13:03 | NUR ---
COMPLETED WOUND CARE PER ORDERS.
[2021-03-27] MEDS ORDERED: CLIN150 PO (13:44)
[2021-03-27] MEDS ORDERED: FURO40 PO (13:45)
--- NOTE | 2021-03-27 14:52 | NUR ---
DISCHARGING REVIEWED DC INSTRUCTIONS W/PT; VERBALIZED UNDERSTANDING. PRESCRIPTIONS CALLED IN TO [employer] PER PT REQUEST. PROVIDED DRESSING CHANGE SUPPLIES. PT GETTING DRESSED AT THIS TIME.
--- NOTE | 2021-03-27 15:12 | NUR ---
DISCHARGED PT LEFT UNIT IN WC W/POSSESSIONS, DC PAPERWORK, AND DRESSING SUPPLIES TO CAR OUTSIDE.
--- NOTE | 2021-03-27 16:17 | NUR ---
Per Dr. Boo discharge appropriate. Patient does not oppose discharge. Patient discharged home to residence. [facility] Home Health Liaison contacted to initiate Home Health services discharge orders. Date of discharge: 03/27/2021 Date of admission: 03/22/2021 Provisional diagnosis at time of admission: right elbow infection Final Diagnosis at time of discharge: right elbow infection Location: [address] [place] [address] Transportation provided by: Patient/private vehicle DME Ordered: None Follow-ups needed: [facility] will contact patient to schedule hospital follow-up visit. Reinforced need to attend follow-up: telehealth appointment (COVID positive). Confirmed numbers: Patient [phone] Mother (patient gave verbal to contact if needed) [phone] Provider/PCP: ELIF Johnston When: WITHIN 1 WEEK Specialty: N/A When: N/A Comment: Explained to patient to contact PCP if any questions regarding medication management, social service needs, and if condition worsens go to Urgent Care/ER. No barriers to discharge. Patient has a strong support network.
--- NOTE | 2021-03-31 08:38 | NUR ---
Review of patient's records today- 03/31/2021 indicate that discharging provider (Dr. Huynh) did not write home health orders upon discharge. Notified [facility] Fire Behavior Analyst (Bonita Salinas) of the above. No further interventions required. Liliana Clark Referral Liaison
[2021-04-02] MEDS ORDERED: Amaryl1 MG PO (09:54)
[2021-04-02] MEDS ORDERED: METF500 PO (09:55)
[2021-04-02] MEDS ORDERED: CATAPRES0.1 MG PO (09:56)
== END 2021-03-27 15:11 | disposition home or self-care (01) | DRG 856 ==
LOC: ER 08:58 → ERHOLD 08:59 → SURS 17:32
PROVIDERS: Internal Medicine; Orthopaedic Surgery; Pharmacist; Student in an Organized Health Care Education/Training Program; ADMIT Hospitalist
PROC: 0JDG0ZZ Extraction of Right Lower Arm Subcutaneous Tissue and Fascia, Open Approach (ICD-10-PCS; principal; 2021-03-23 12:45)
DX: T81.41XA Infection following a procedure, superficial incisional surgical site, initial encounter (principal); U07.1 COVID-19; N17.9 Acute kidney failure, unspecified; E83.42 Hypomagnesemia; E87.70 Fluid overload, unspecified; L08.9 Local infection of the skin and subcutaneous tissue, unspecified; E11.22 Type 2 diabetes mellitus with diabetic chronic kidney disease; K21.9 Gastro-esophageal reflux disease without esophagitis; E66.9 Obesity, unspecified; Z68.38 Body mass index [BMI] 38.0-38.9, adult; I12.9 Hypertensive chronic kidney disease with stage 1 through stage 4 chronic kidney disease, or unspecified chronic kidney disease; N18.30 Chronic kidney disease, stage 3 unspecified; Z87.891 Personal history of nicotine dependence; Z87.442 Personal history of urinary calculi; Z79.82 Long term (current) use of aspirin; Z79.4 Long term (current) use of insulin; Z88.8 Allergy status to other drugs, medicaments and biological substances; Z90.89 Acquired absence of other organs; Z90.49 Acquired absence of other specified parts of digestive tract; Z79.899 Other long term (current) drug therapy; Y83.8 Other surgical procedures as the cause of abnormal reaction of the patient, or of later complication, without mention of misadventure at the time of the procedure
CPT/HCPCS: 0241U; 36415; 71045; 73201; 80048; 80053; 80202; 82947; 83735; 84100; 84145; 85025; 85651; 86140; 87070; 87075; 87205; 94760; 96365-59; 96366-59; 96367-59; 99285-25; A9270; J1815; J1940; J2250; J2543; J2704; J2795; J3010; J3370; J3475; J7030; J7042; J7050; Q9967

== ENCOUNTER → 2021-04-02 | Outpatient (CLI) | payer OTHER ==
[~2021-04-02] MED LIST changes: +CLIN150 PO; +FURO40 PO
[2021-04-02 18:02] LABS: Source, Urine Voided
[2021-04-02 19:59] LABS: Bilirubin, Urine Neg (Neg); Blood, Urine 2+ (Neg); Color, Urine Yellow (P-Yellow); Glucose Qualitative, Urine Neg (Neg); Ketones, Urine Neg (Neg); Leukocyte Esterase, Urine Neg (Neg); Nitrite, Urine Neg (Neg); Protein, Urine 1+ (Neg); Specific Gravity, Urine 1.015 (1.003-1.022); Urobilinogen, Urine NORM (Normal)
[2021-04-02 20:33] LABS: Appearance, Urine Hazy (Clear); White Blood Cells, Urine 0-2 /hpf (0-5)
[2021-04-02 20:34] LABS: Bacteria Few /hpf; Hyaline Casts 0-2 /lpf (0-2); Squamous Epithelial Cells Rare /hpf (Few); Transitional Epithelial Cells Few /hpf (0-Rare)
== END ==
LOC: LAB SHORT 15:20 → LAB 15:20
PROVIDERS: Nurse Practitioner Family
DX: R31.9 Hematuria, unspecified (principal)
CPT/HCPCS: 81001

== ENCOUNTER 2021-04-04 02:51 | Day surgery (SDC) | payer OTHER | END 2021-04-04 23:01 | disposition home or self-care (01) | LOC: WOUND | DX: T81.32XA Disruption of internal operation (surgical) wound, not elsewhere classified, initial encounter (principal); E11.9 Type 2 diabetes mellitus without complications; I10 Essential (primary) hypertension; Z88.8 Allergy status to other drugs, medicaments and biological substances | CPT/HCPCS: A9270; G0463 ==

== ENCOUNTER 2021-04-11 00:50 | Day surgery (SDC) | payer OTHER | END 2021-04-11 23:55 | disposition home or self-care (01) | LOC: WOUND 00:50 | DX: T81.31XA Disruption of external operation (surgical) wound, not elsewhere classified, initial encounter (principal); Y83.8 Other surgical procedures as the cause of abnormal reaction of the patient, or of later complication, without mention of misadventure at the time of the procedure; E11.9 Type 2 diabetes mellitus without complications; I10 Essential (primary) hypertension | CPT/HCPCS: A9270; G0463 ==

== ENCOUNTER 2021-04-18 00:56 | Day surgery (SDC) | payer OTHER | END 2021-04-18 22:50 | disposition home or self-care (01) | LOC: WOUND 00:56 | DX: T81.32XD Disruption of internal operation (surgical) wound, not elsewhere classified, subsequent encounter (principal); I10 Essential (primary) hypertension; E11.9 Type 2 diabetes mellitus without complications | CPT/HCPCS: A9270; G0463 ==

== ENCOUNTER 2021-04-25 00:34 | Day surgery (SDC) | payer OTHER | END 2021-04-25 23:54 | disposition home or self-care (01) | LOC: WOUND 00:34 | DX: T81.32XA Disruption of internal operation (surgical) wound, not elsewhere classified, initial encounter (principal); I10 Essential (primary) hypertension; E11.9 Type 2 diabetes mellitus without complications; Y83.8 Other surgical procedures as the cause of abnormal reaction of the patient, or of later complication, without mention of misadventure at the time of the procedure | CPT/HCPCS: A9270 ==

== ENCOUNTER 2021-05-02 02:39 | Day surgery (SDC) | payer OTHER | END 2021-05-02 23:16 | disposition home or self-care (01) | LOC: WOUND | DX: T81.32XA Disruption of internal operation (surgical) wound, not elsewhere classified, initial encounter (principal); Y83.8 Other surgical procedures as the cause of abnormal reaction of the patient, or of later complication, without mention of misadventure at the time of the procedure | CPT/HCPCS: G0463 ==

== ENCOUNTER 2021-05-16 01:39 | Day surgery (SDC) | payer OTHER | END 2021-05-16 23:06 | disposition home or self-care (01) | LOC: WOUND 01:39 | DX: T81.31XA Disruption of external operation (surgical) wound, not elsewhere classified, initial encounter (principal); Y83.8 Other surgical procedures as the cause of abnormal reaction of the patient, or of later complication, without mention of misadventure at the time of the procedure | CPT/HCPCS: A9270; G0463 ==

== ENCOUNTER 2021-05-30 02:44 | Day surgery (SDC) | payer OTHER | END 2021-05-30 23:11 | disposition home or self-care (01) | LOC: WOUND 02:44 | DX: S51.001D Unspecified open wound of right elbow, subsequent encounter (principal); T81.32XD Disruption of internal operation (surgical) wound, not elsewhere classified, subsequent encounter; I10 Essential (primary) hypertension; E11.9 Type 2 diabetes mellitus without complications | CPT/HCPCS: A9270; G0463 ==

== ENCOUNTER → 2021-06-21 | Outpatient (CLI) | payer OTHER ==
[2021-06-23 10:07] LABS: HBSAG SCREEN Negative (Negative)
[2021-06-23 11:08] LABS: HIV AB/P24 AG SCREEN Non Reactive (Non Reactive)
== END ==
LOC: LAB SHORT 16:57 → LAB 16:57
PROVIDERS: Physician Assistant Medical
DX: Z20.9 Contact with and (suspected) exposure to unspecified communicable disease (principal)
CPT/HCPCS: 84460; 86317; 87340; 87389

== ENCOUNTER → 2021-10-16 | Outpatient (CLI) | payer OTHER ==
[2021-10-16 17:44] LABS: BASOPHILS ABSOLUTE AUTO 0.01 K/mm3 (0.00-0.23); BASOPHILS PERCENT AUTO 0 % (0-2); EOSINOPHILS PERCENT AUTO 3 % (0-6); Hematocrit 32.8 % (37.0-53.0); Hemoglobin 11.2 g/dL (13.5-17.5); Mean Corpuscular HGB 33.3 pg (26.0-34.0); Mean Corpuscular HGB Conc 34.1 g/dL (31.5-36.5); Mean Corpuscular Volume 98 fL (80-100); Platelet Count 93 K/mm3 (150-400); RDW Coefficient Variation 14.4 % (11.7-14.2); RDW Standard Deviation 50.7 fL (35.1-46.3); Red Blood Cell Count 3.36 M/mm3 (4.30-5.90); White Blood Cell Count 4.05 K/mm3 (4.00-11.30)
[2021-10-16 18:37] LABS: Albumin, Blood 3.3 g/dL (3.4-5.0); Albumin/Globulin Ratio 1.1 (0.8-1.8); Bilirubin, Total 0.6 mg/dL (0.1-1.0); Bun/Creatinine Ratio 14.8 (12.0-20.0); Calcium, Blood 8.4 mg/dL (8.5-10.1); Creatinine, Blood 1.28 mg/dL (0.60-1.20); Globulin, Blood 2.9 g/dL (2.2-4.0); Potassium, Blood 4.4 mmol/L (3.5-5.5); Total Protein, Blood 6.2 g/dL (6.4-8.2)
[2021-10-16 18:39] LABS: IMMATURE GRAN ABSOLUTE AUTO 0.02 K/mm3 (0.00-0.10); IMMATURE GRAN PERCENT AUTO 1 % (0-1); LYMPHOCYTES ABSOLUTE AUTO 0.58 K/mm3 (0.84-5.20); LYMPHOCYTES PERCENT AUTO 14 % (21-46); MONOCYTES PERCENT AUTO 17 % (4-13); NEUTROPHILS ABSOLUTE AUTO 2.64 K/mm3 (1.96-9.15); NEUTROPHILS PERCENT AUTO 65 % (41-73)
== END | disposition home or self-care (01) ==
LOC: LAB SHORT 16:51 → LAB 16:51
PROVIDERS: Chiropractor
DX: N39.0 Urinary tract infection, site not specified (principal); R10.13 Epigastric pain
CPT/HCPCS: 80053; 83690; 84484; 85025; 87077; 87086; 87186

== ENCOUNTER → 2021-12-18 | Outpatient (CLI) | payer OTHER ==
[2021-12-19 13:44] LABS: Source, Urine Voided
[2021-12-19 15:08] LABS: Appearance, Urine Hazy (Clear); Blood, Urine 2+ (Neg); Color, Urine Yellow (P-Yellow); Glucose Qualitative, Urine 4+ (Neg); Ketones, Urine Neg (Neg); Leukocyte Esterase, Urine 3+ (Neg); Nitrite, Urine Pos (Neg); Protein, Urine 2+ (Neg); Specific Gravity, Urine 1.015 (1.003-1.022); Urobilinogen, Urine 1+ (Normal)
[2021-12-19 15:24] LABS: Bilirubin, Urine 1+ (Neg)
[2021-12-19 15:30] LABS: Amorphous Light (0-Heavy); Bacteria Many /hpf; Squamous Epithelial Cells Few /hpf (Few)
== END | disposition home or self-care (01) ==
LOC: LAB 13:41 → LAB SHORT 13:41
PROVIDERS: Nurse Practitioner Family
DX: R30.0 Dysuria (principal)
CPT/HCPCS: 81001; 87077; 87086; 87186

== ENCOUNTER 2022-05-10 19:44 | Emergency (ER) | payer OTHER ==
[~2022-05-10] VITALS: Ht 177.8 cm; Wt 113.4 kg
[2022-05-10] MEDS ORDERED: METFORMIN HCL500 M3 PO (20:01)
[2022-05-10 20:14] LABS: BASOPHILS ABSOLUTE AUTO 0.02 K/mm3 (0.00-0.23); BASOPHILS PERCENT AUTO 0 % (0-2); EOSINOPHILS ABSOLUTE AUTO 0.15 K/mm3 (0.00-0.68); EOSINOPHILS PERCENT AUTO 2 % (0-6); Hematocrit 39.5 % (37.0-53.0); Hemoglobin 13.6 g/dL (13.5-17.5); IMMATURE GRAN ABSOLUTE AUTO 0.03 K/mm3 (0.00-0.10); IMMATURE GRAN PERCENT AUTO 0 % (0-1); LYMPHOCYTES ABSOLUTE AUTO 2.78 K/mm3 (0.84-5.20); LYMPHOCYTES PERCENT AUTO 36 % (21-46); MONOCYTES ABSOLUTE AUTO 0.55 K/mm3 (0.16-1.47); MONOCYTES PERCENT AUTO 7 % (4-13); Mean Corpuscular HGB 32.9 pg (26.0-34.0); Mean Corpuscular HGB Conc 34.4 g/dL (31.5-36.5); Mean Corpuscular Volume 96 fL (80-100); Mean Platelet Volume 10.4 fL (9.1-12.4); NEUTROPHILS ABSOLUTE AUTO 4.14 K/mm3 (1.96-9.15); NEUTROPHILS PERCENT AUTO 54 % (41-73); Platelet Count 199 K/mm3 (150-400); RDW Coefficient Variation 13.9 % (11.7-14.2); RDW Standard Deviation 49.2 fL (35.1-46.3); Red Blood Cell Count 4.13 M/mm3 (4.30-5.90); White Blood Cell Count 7.67 K/mm3 (4.00-11.30)
[2022-05-10 20:26] LABS: Albumin/Globulin Ratio 0.7 (0.8-1.8); Bilirubin, Total 0.4 mg/dL (0.1-1.0); Bun/Creatinine Ratio 11.9 (12.0-20.0); Calcium, Blood 8.4 mg/dL (8.5-10.1); Creatinine, Blood 2.02 mg/dL (0.60-1.20); Globulin, Blood 4.1 g/dL (2.2-4.0); Potassium, Blood 4.5 mmol/L (3.5-5.5); Total Protein, Blood 7.1 g/dL (6.4-8.2)
[2022-05-10 23:25] LABS: Influenza A, PCR NEGATIVE (NEGATIVE); Influenza B, PCR NEGATIVE (NEGATIVE); Resp Syncytial Virus, PCR NEGATIVE (NEGATIVE); SARS-Cov-2 (COVID-19) PCR, MMC NEGATIVE (NEGATIVE)
[2022-05-11] MEDS ORDERED: AZIT250 PO (00:19)
== END 2022-05-11 01:00 | disposition home or self-care (01) ==
LOC: ER 19:44
PROVIDERS: Emergency Medicine; Student in an Organized Health Care Education/Training Program
DX: E11.65 Type 2 diabetes mellitus with hyperglycemia (principal); J18.9 Pneumonia, unspecified organism; I10 Essential (primary) hypertension; F17.210 Nicotine dependence, cigarettes, uncomplicated; Z88.8 Allergy status to other drugs, medicaments and biological substances; Z79.4 Long term (current) use of insulin; Z79.899 Other long term (current) drug therapy
CPT/HCPCS: 0241U; 71045; 80053; 82947; 83930; 85025; 93005; 93010; 94640; 94664; A9270; G0480; J7030